=== PATIENT | female | born 1995 | race Caucasian/White ===

== ENCOUNTER 2017-04-05 06:30 | Emergency (ER) | payer OTHER ==
[2017-04-05 06:58] VITALS: TEMP 98.5; BMI 21.9
[2017-04-05] MEDS ORDERED: SODIUM CHLORIDE 1,000 ML IV STA (07:18)
[2017-04-05] MEDS ORDERED: ACETAMINOPHEN 1000 MG/100 ML VIAL (NON FORMULARY) IVPB ONE (07:18)
[2017-04-05] MEDS ORDERED: ACETAMINOPHEN INJECTION 100 ML IVPB ONE (07:22)
--- NOTE | 2017-04-05 07:37 | PDOC ---
History of Present Illness - General History Source: Patient Exam Limitations: No Limitations - History of Present Illness Initial Comments: 04/05/17 07:42 The patient is a 21 year old female, with a significant past medical history of , who presents to the emergency department with abdominal pain, nausea, and vomiting since yesterday. The patient reports during her period, on Monday, having heavy dark bleeding with various visible clots. She reports since then having sharp and constant abdominal pain. She also notes having one episode of vomiting this morning. She reports taking control, but reports taking them regularly. She denies any recent travel or sick contacts. She denies recent fevers, chills, headache or dizziness. She denies recent diarrhea or constipation. She denies recent dysuria, frequency, urgency or hematuria. She denies recent chest pain or shortness of breath. Allergies: NKA Past surgical history: None reported. Social history: Nonsmoker. Denies EtOH use and recreational drug use. <Maximino Lindsay - Last Filed: 04/05/17 07:52> - General History Source: Patient Exam Limitations: No Limitations <Kofi Fernández - Last Filed: 04/06/17 08:09> - General Chief Complaint: Nausea/Vomiting Stated Complaint: ABD PAIN, VOMITING Time Seen by Provider: 04/05/17 07:06 Past History <Maximino Lindsay - Last Filed: 04/05/17 07:52> - Past Medical History Asthma: Yes - Immunization History Immunization Up to Date: Yes - Psycho/Social/Smoking Cessation Hx Anxiety: No Suicidal Ideation: No Smoking Status: No Smoking History: Current every day smoker Number of Cigarettes Smoked Daily: 7 Information on smoking cessation initiated: No Hx Alcohol Use: No Drug/Substance Use Hx: No Substance Use Type: None <Kofi Fernández - Last Filed: 04/06/17 08:09> - Past Medical History Allergies/Adverse Reactions: Allergies Allergy/AdvReac Type Severity Reaction Status Date / Time No Known Allergies Allergy Verified 01/04/16 12:29 Home Medications: Ambulatory Orders Cephalexin [Keflex] 500 mg PO BID #14 capsule 04/05/17 Levonorgestrel-Ethin Estradiol [Altavera-28 Tablet] 1 tab PO DAILY 04/05/17 Review of Systems - Review of Systems Able to Perform ROS?: Yes Comments:: 04/05/17 07:42 GENERAL/CONSTITUTIONAL: No fever or chills. No weakness. HEAD, EYES, EARS, NOSE AND THROAT: No change in vision. No ear pain or discharge. No sore throat. CARDIOVASCULAR: No chest pain or shortness of breath. RESPIRATORY: No cough, wheezing, or hemoptysis. GASTROINTESTINAL: +Abdominal pain, nausea, vomiting. No diarrhea or constipation. GENITOURINARY: +dysfunctional vaginal bleeding. No dysuria, frequency, or change in urination. MUSCULOSKELETAL: No joint or muscle swelling or pain. No neck or back pain. SKIN: No rash NEUROLOGIC: No headache, vertigo, loss of consciousness, or change in strength/ sensation. ENDOCRINE: No increased thirst. No abnormal weight change. HEMATOLOGIC/LYMPHATIC: No anemia, easy bleeding, or history of blood clots. ALLERGIC/IMMUNOLOGIC: No hives or skin allergy. <Maximino Lindsay - Last Filed: 04/05/17 07:52> *Physical Exam - Vital Signs Last Vital Signs Temp Pulse Resp BP Pulse Ox 98.5 F 82 19 136/71 100 04/05/17 06:45 04/05/17 06:45 04/05/17 06:45 04/05/17 06:45 04/05/17 06:45 - Physical Exam Comments: 04/05/17 07:53 GENERAL: Awake, alert, and fully oriented, in no acute distress HEAD: No signs of trauma EYES: PERRLA, EOMI, sclera anicteric, conjunctiva clear ENT: Auricles normal inspection, hearing grossly normal, nares patent, oropharynx clear without exudates. Moist mucosa NECK: Normal ROM, supple, no lymphadenopathy, JVD, or masses LUNGS: Breath sounds equal, clear to auscultation bilaterally. No wheezes, and no crackles HEART: Regular rate and rhythm, normal S1 and S2, no murmurs, rubs or gallops ABDOMEN: Mild suprabic tenderness. Negative mcburney's point. No RLQ tenderness. Soft, normoactive bowel sounds. No guarding, no rebound. No masses PELVIC: No blood or discharge. Closed cervical os. Mild discomfort on palpation of the uterus. No adnexal tenderness. EXTREMITIES: Normal range of motion, no edema. No clubbing or cyanosis. No cords, erythema, or tenderness NEUROLOGICAL: Cranial nerves II through XII grossly intact. Normal speech, normal gait SKIN: Warm, Dry, normal turgor, no rashes or lesions noted. <Maximino Lindsay - Last Filed: 04/05/17 07:52> - Vital Signs Last Vital Signs Temp Pulse Resp BP Pulse Ox 98.5 F 82 19 136/71 100 04/05/17 06:45 04/05/17 06:45 04/05/17 06:45 04/05/17 06:45 04/05/17 06:45 <Kofi Fernández - Last Filed: 04/06/17 08:09> ED Treatment Course - LABORATORY CBC & Chemistry Diagram: 04/05/17 07:40 04/05/17 07:40 <Maximino Lindsay - Last Filed: 04/05/17 07:52> - LABORATORY CBC & Chemistry Diagram: 04/05/17 07:40 04/05/17 07:40 <Kofi Fernández - Last Filed: 04/06/17 08:09> Medical Decision Making - Medical Decision Making 04/05/17 07:26 A portion of this note was documented by scribe services under my direction. I have reviewed the details of the note, within reason, and agree with the documentation with the following case summary and management plan written by me. Patient treated in the ED. Nursing notes are reviewed and incorporated into the medical decision-making. Vital signs reviewed. Peripheral IV access obtained by the nurse, laboratory studies are drawn and sent, reviewed and interpreted by myself. Vital Signs Temp Pulse Resp BP Pulse Ox 98.5 F 82 19 136/71 100 04/05/17 06:45 04/05/17 06:45 04/05/17 06:45 04/05/17 06:45 04/05/17 06:45 21-year-old female with past medical history of asthma, history of irregular periods and on OCPs presents with lower abdominal pain. Patient reports that she typically has irregular periods she had her period 1 week ago that resolved. Did not have much abdominal pain at that time. However, last 2 days, patient's been having intermittent sharp lower abdominal pain but no vaginal bleeding or discharge. She is currently sexually active with her significant other. Does not use condoms and she is on control pills. She does report that she occasionally misses her oral contraceptives. Reported one episode of nausea and vomiting. Denies diarrhea. Her last period was several months ago. Patient has lower abdominal pain but no right lower quadrant left for quadrant tenderness. Differential includes, if , ectopic versus threatened miscarriage, uterine fibroids, cystitis, other acute abdominal pathology. We'll obtain a urine test. Labs. We'll likely need further imaging. 04/05/17 14:57 CBC, BMP 04/05/17 07:40 04/05/17 07:40 CMP Sodium 143 mmol/L (136-145) 04/05/17 07:40 Potassium 3.9 mmol/L (3.5-5.1) 04/05/17 07:40 Chloride 110 mmol/L (98-107) H 04/05/17 07:40 Carbon Dioxide 24 mmol/L (21-32) 04/05/17 07:40 Anion Gap 9 (8-16) 04/05/17 07:40 BUN 12 mg/dL (7-18) 04/05/17 07:40 Creatinine 0.8 mg/dL (0.55-1.02) 04/05/17 07:40 Creat Clearance w eGFR > 60 (>60) 04/05/17 07:40 Random Glucose 95 mg/dL (74-106) 04/05/17 07:40 Calcium 9.0 mg/dL (8.5-10.1) 04/05/17 07:40 Total Bilirubin 0.3 mg/dL (0.2-1.0) 04/05/17 07:40 AST 12 U/L (15-37) L 04/05/17 07:40 ALT 19 U/L (12-78) 04/05/17 07:40 Alkaline Phosphatase 78 U/L (45-117) 04/05/17 07:40 Total Protein 7.0 g/dl (6.4-8.2) 04/05/17 07:40 Albumin 3.8 g/dl (3.4-5.0) 04/05/17 07:40 Beta HCG, Quant < 1.0 mIU/ml 04/05/17 07:40 Urine Test Results Urine Color Yellow 04/05/17 07:40 Urine Appearance Slcloudy 04/05/17 07:40 Urine pH 7.0 (5.0-8.0) 04/05/17 07:40 Ur Specific Ford 1.020 (1.005-1.025) 04/05/17 07:40 Urine Protein 1+ (NEGATIVE) H 04/05/17 07:40 Urine Glucose (UA) Negative (NEGATIVE) 04/05/17 07:40 Urine Ketones Negative (NEGATIVE) 04/05/17 07:40 Urine Blood Negative (NEGATIVE) 04/05/17 07:40 Urine Nitrite Negative (NEGATIVE) 04/05/17 07:40 Urine Bilirubin Negative (NEGATIVE) 04/05/17 07:40 Ur Leukocyte Esterase 3+ (NEGATIVE) H 04/05/17 07:40 Urine RBC 5 /hpf (0-3) 04/05/17 07:40 Urine WBC 29 /hpf (3-5) 04/05/17 07:40 Ur Epithelial Cells Few /hpf (FEW) 04/05/17 07:40 Urine Mucus Rare 04/05/17 07:40 Pt with diffuse lower abdominal pain. Transvaginal ultrasound and CT scan of abdomen and pelvis demonstrated no acute findings. Pt reports feeling better. Given ceftriaxone. Will d/c with keflex. I instructed the patient to call back in the next several days for the cultures. Return precautions given. I discussed the physical exam findings, ancillary test results and final diagnoses with the patient. I answered all of the patient's questions. The patient was satisfied with the care received and felt comfortable with the discharge plan and treatment plan. The patient will call their primary care physician within 24 hours to arrange follow-up and will return to the Emergency Department with any new, persistant or worsening symptoms. <Kofi Fernández - Last Filed: 04/06/17 08:09> *DC/Admit/Observation/Transfer - Attestations Scribe Attestion: 04/05/17 07:53 Documentation prepared by Maximino Lindsay, acting as medical equipment repairer for Kofi Fernández MD. <Maximino Lindsay - Last Filed: 04/05/17 07:52> - Discharge Dispostion Admit: No <Kofi Fernández - Last Filed: 04/06/17 08:09> Diagnosis at time of Disposition: UTI (urinary tract infection) Qualifiers: Urinary tract infection type: acute cystitis Hematuria presence: without hematuria Qualified Code(s): N30.00 - Acute cystitis without hematuria - Discharge Dispostion Disposition: HOME Condition at time of disposition: Improved - Prescriptions Prescriptions: Cephalexin [Keflex] 500 mg PO BID #14 capsule - Patient Instructions Printed Discharge Instructions: DI for Urinary Tract Infection (UTI) Additional Instructions: Please call back in the next 48 to 72 hours for the urine culture results. Take 500 mg keflex (antibiotic) every 12 hours for the next 7 days. Please take the medications as prescribed. Drink plenty of fluids and rest. Follow up with your primary care physician.
[2017-04-05 07:53] LABS: BASOPHIL 0.3 % (0-2.0); EOSINOPHIL 1.1 % (0-4.5); MCH 31.7 pg (25.7-33.7); MEAN CELL VOLUME 93.3 fl (80-96); MEAN PLT VOLUME 7.8 fl (7.5-11.1); NEUTROPHILS 79.6 % (42.8-82.8); PLATELET COUNT 273 K/MM3 (134-434); RDW 14.1 % (11.6-15.6); WHITE BLOOD COUNT 17.3 K/mm3 (4.0-10.0)
[2017-04-05 07:54] LABS: URINE APPEARANCE SLCLOUDY; URINE BILIRUBIN NEGATIVE (NEGATIVE); URINE BLOOD NEGATIVE (NEGATIVE); URINE COLOR YELLOW; URINE GLUCOSE (UA) NEGATIVE (NEGATIVE); URINE KETONE NEGATIVE (NEGATIVE); URINE NITRITE NEGATIVE (NEGATIVE); URINE UROBILINOGEN NEGATIVE E.U./dl (0.2-1.0)
[2017-04-05 07:57] LABS: URINE LEUK ESTERASE 3+ (NEGATIVE); URINE PROTEIN 1+ (NEGATIVE)
[2017-04-05 07:59] LABS: URINE MUCUS RARE; URINE RBC 5 /hpf (0-3); URINE WBC 29 /hpf (3-5)
[2017-04-05 08:18] LABS: ALBUMIN 3.8 g/dl (3.4-5.0); ANION GAP 9 (8-16); CO2 24 mmol/L (21-32); COCKROFT - GAULT 96.3815; CREATININE 0.8 mg/dL (0.55-1.02); GLUCOSE,RANDOM 95 mg/dL (74-106); SGOT/AST 12 U/L (15-37); SGPT/ALT 19 U/L (12-78)
[2017-04-05 08:21] LABS: ALK PHOS 78 U/L (45-117); BILIRUBIN,TOTAL 0.3 mg/dL (0.2-1.0)
[2017-04-05] MEDS ORDERED: CEFTRIAXONE 1 GM in DEXTROSE 5%-WATER - 50 ML IVPB ONE (08:40)
[2017-04-05] MEDS ORDERED: CEFTRIAXONE 50 ML ONE (08:46)
[2017-04-05] MEDS ORDERED: ONDANSETRON 4 MG/2 ML VIAL IVPB ONE (11:25)
[2017-04-05] MEDS ORDERED: ONDANSETRON 4 MG/2 ML VIAL ONE (11:35)
[2017-04-05 15:32] VITALS: BP 96/61; PULSE 58
== END 2017-04-05 15:32 | disposition home or self-care (01) ==
LOC: JER 06:30
PROC: 3E03329 Introduction of Other Anti-infective into Peripheral Vein, Percutaneous Approach (ICD-10-PCS; principal; 2017-04-05)
PROC: 3E033GC Introduction of Other Therapeutic Substance into Peripheral Vein, Percutaneous Approach (ICD-10-PCS; 2017-04-05)
PROC: 3E0337Z Introduction of Electrolytic and Water Balance Substance into Peripheral Vein, Percutaneous Approach (ICD-10-PCS; 2017-04-05)
DX: N30.00 Acute cystitis without hematuria (principal); F17.210 Nicotine dependence, cigarettes, uncomplicated
CPT/HCPCS: 36415; 74177-TC; 76830-TC; 76856-TC; 80053; 81003; 81015; 84702; 84703; 85025; 86850; 86900; 86901; 87077; 87086; 99283-25

== ENCOUNTER 2017-10-04 21:05 | Emergency (ER) | payer OTHER ==
--- NOTE | 2017-10-04 21:10 | PDOC ---
Rapid Medical Evaluation Time Seen by Provider: 10/04/17 21:07 Medical Evaluation: Allergies Allergy/AdvReac Type Severity Reaction Status Date / Time No Known Allergies Allergy Verified 01/04/16 12:29 10/04/17 21:07 The patient presents with a chief complaint of: lower abd pain x 4-5 days, vomiting x 1, denies preg, no irreg menses, no dysuria, no diarrhea, no travel I have performed a brief in-person evaluation of this patient. Pertinent physical exam findings: vss I have ordered the following: ua , ucx, upreg The patient will proceed to the ED for further evaluation. Discharge Disposition - Diagnosis Lower abdominal pain - Referrals - Patient Instructions - Post Discharge Activity
[2017-10-04 21:16] VITALS: BP 112/69; PULSE 90; TEMP 98; BMI 19.0
[2017-10-04 21:27] LABS: URINE APPEARANCE CLOUDY; URINE BILIRUBIN NEGATIVE (NEGATIVE); URINE BLOOD NEGATIVE (NEGATIVE); URINE COLOR YELLOW; URINE GLUCOSE (UA) NEGATIVE (NEGATIVE); URINE KETONE TRACE (NEGATIVE); URINE NITRITE NEGATIVE (NEGATIVE); URINE PROTEIN NEGATIVE (NEGATIVE); URINE UROBILINOGEN 4.0 E.U/dl mg/dL (0.2-1.0)
[2017-10-04 21:28] LABS: URINE LEUK ESTERASE 2+ (NEGATIVE)
[2017-10-04 21:29] LABS: URINE BACTERIA RARE /hpf (NONE SEEN); URINE MUCUS RARE; URINE RBC 10 /hpf (0-3); URINE WBC 89 /hpf (3-5)
[2017-10-04] MEDS ORDERED: ONDANSETRON *ODT* 4 MG TABLET SL ONE (21:35)
[2017-10-04] MEDS ORDERED: ACETAMINOPHEN 325 MG TABLET (FP) PO ONE (21:35)
--- NOTE | 2017-10-04 21:44 | PDOC ---
History of Present Illness - General History Source: Patient Exam Limitations: No Limitations - History of Present Illness Initial Comments: 10/04/17 21:45 22 year old female with no PMH, who presents to the emergency room complaining of 3-5 days of constant lower abdominal pain, nausea, and 1 episode of nonbilious nonbloody vomiting today. The patient notes that her LMP was on . She reports that her last bowel movement was today and normal. Denies dark tarry stools. Denies diarrhea, constipation. Denies fever, chills. Denies night sweats. Denies sick contacts. Allergies: NKA <Estefani Mccloud - Last Filed: 10/04/17 21:45> <Diana Fung - Last Filed: 10/05/17 00:00> - General Chief Complaint: Pain Stated Complaint: STOMACH PAIN Time Seen by Provider: 10/04/17 21:07 Past History <Estefani Mccloud - Last Filed: 10/04/17 21:45> - Past Medical History Asthma: Yes COPD: No - Immunization History Immunization Up to Date: Yes - Suicide/Smoking/Psychosocial Hx Smoking Status: No Smoking History: Never smoked Have you smoked in the past 12 months: No Number of Cigarettes Smoked Daily: 5 Information on smoking cessation initiated: No Hx Alcohol Use: No Drug/Substance Use Hx: No Substance Use Type: None <Diana Fung - Last Filed: 10/05/17 00:00> - Past Medical History Allergies/Adverse Reactions: Allergies Allergy/AdvReac Type Severity Reaction Status Date / Time No Known Allergies Allergy Verified 10/04/17 21:09 Home Medications: Ambulatory Orders Cephalexin [Keflex] 500 mg PO BID #14 capsule 04/05/17 Levonorgestrel-Ethin Estradiol [Altavera-28 Tablet] 1 tab PO DAILY 04/05/17 Ciprofloxacin [Cipro (Restricted To Id)] 500 mg PO BID #14 tablet 04/07/17 Nitrofurantoin Monohyd/M-Cryst [Macrobid -] 100 mg PO BID #10 capsule 10/04/17 Review of Systems - Review of Systems Able to Perform ROS?: Yes Comments:: 10/04/17 21:45 GENERAL/CONSTITUTIONAL: No fever or chills. No weakness. HEAD, EYES, EARS, NOSE AND THROAT: No change in vision. No ear pain or discharge. No sore throat. GASTROINTESTINAL: +lower abdominal pain, nausea, one episode of vomiting, No diarrhea or constipation. GENITOURINARY: No dysuria, frequency, or change in urination. CARDIOVASCULAR: No chest pain or shortness of breath. RESPIRATORY: No cough, wheezing, or hemoptysis. MUSCULOSKELETAL: No joint or muscle swelling or pain. No neck or back pain. SKIN: No rash NEUROLOGIC: No headache, vertigo, loss of consciousness, or change in strength/ sensation. ENDOCRINE: No increased thirst. No abnormal weight change. HEMATOLOGIC/LYMPHATIC: No anemia, easy bleeding, or history of blood clots. ALLERGIC/IMMUNOLOGIC: No hives or skin allergy. <Estefani Mccloud - Last Filed: 10/04/17 21:45> *Physical Exam - Vital Signs Last Vital Signs Temp Pulse Resp BP Pulse Ox 98.0 F 90 18 112/69 99 10/04/17 21:09 10/04/17 21:09 10/04/17 21:09 10/04/17 21:09 10/04/17 21:09 - Physical Exam Comments: 10/04/17 21:45 Constitutional: Awake, alert, oriented. No acute distress. Head: Normocephalic. Atraumatic Eyes: PERRL. EOMI. Conjunctivae are not pale. ENT: Mucous membranes are moist and intact. Posterior pharynx without exudates or erythema. Uvula midline. Neck: Supple. Full ROM. No lymphadenopathy. Cardiovascular: Regular rate. Regular rhythm. S1, S2 regular. Distal pulses are 2+ and symmetric. Pulmonary/Chest: No evidence of respiratory distress. Clear to auscultation bilaterally No wheezing, rales or rhonchi. Abdominal: +bilateral lower pelvic tenderness Soft and non-distended. No rebound, guarding or rigidity. No organomegaly. No palpable masses. Good bowel sounds. Back: No CVA tenderness. Musculoskeletal: No edema. No cyanosis. No clubbing. Full range of motion in all extremities. Nocalf tenderness. Radial/pedal pulses are intact and 2+ bilaterally Skin: Skin is warm and dry. No petechiae. No purpura. Neurological: Alert and oriented to person, place, and time. Cranial nerves II -XII are grossly intact. Normal speech. Strength is grossly symmetric. No sensory deficits. Psychiatric: Good eye contact. Normal interaction, affect and behavior. <Estefani Mccloud - Last Filed: 10/04/17 21:45> - Vital Signs Last Vital Signs Temp Pulse Resp BP Pulse Ox 98.0 F 90 18 112/69 99 10/04/17 21:09 10/04/17 21:09 10/04/17 21:09 10/04/17 21:09 10/04/17 21:09 <Diana Fung - Last Filed: 10/05/17 00:00> ED Treatment Course - ADDITIONAL ORDERS Additional order review: Laboratory Results 10/04/17 21:15 Urine Color Yellow Urine Appearance Cloudy Urine pH 6.0 Ur Specific Roland 1.025 Urine Protein Negative Urine Glucose (UA) Negative Urine Ketones Trace H Urine Blood Negative Urine Nitrite Negative Urine Bilirubin Negative Urine Urobilinogen 4.0 e.u/dl H Urine WBC (Auto) 89 Urine RBC (Auto) 10 Ur Epithelial Cells Many Urine Bacteria Rare Urine Mucus Rare Urine HCG, Qual Negative <Estefani Mccloud - Last Filed: 10/04/17 21:45> - LABORATORY CBC & Chemistry Diagram: 10/04/17 22:00 10/04/17 22:00 - ADDITIONAL ORDERS Additional order review: Laboratory Results 10/04/17 21:15 Urine Color Yellow Urine Appearance Cloudy Urine pH 6.0 Ur Specific Roland 1.025 Urine Protein Negative Urine Glucose (UA) Negative Urine Ketones Trace H Urine Blood Negative Urine Nitrite Negative Urine Bilirubin Negative Urine Urobilinogen 4.0 e.u/dl H Urine WBC (Auto) 89 Urine RBC (Auto) 10 Ur Epithelial Cells Many Urine Bacteria Rare Urine Mucus Rare Urine HCG, Qual Negative - RADIOLOGY Radiology Studies Ordered: Category Date Time Status TRANSVAGINAL ULTRASOUND US [US] Stat Ultrasound 10/04/17 21:34 Ordered <Diana Fung - Last Filed: 10/05/17 00:00> Medical Decision Making - Medical Decision Making 10/04/17 21:43 a/p: 22yo female with lower abd pain x5 days -will check labs -pelvic u/s -ua -reassess -zofran for nausea -tylenol for pain 10/04/17 23:21 re-eval: pt feeling better. nausea controlled. will start abx for UTI. discussed ultrasound results. 10/04/17 23:58 pt ambulatory in the ED stable for d/c to home discussed all reasons to return to the ED and need for follow up <Diana Fung - Last Filed: 10/05/17 00:00> *DC/Admit/Observation/Transfer - Attestations Scribe Attestion: 10/04/17 21:46 Documentation prepared by KAELA Wells, acting as certified ophthalmic medical technician for Diana Fung DO. <Estefani Mccloud - Last Filed: 10/04/17 21:45> - Discharge Dispostion Admit: No - Attestations Physician Attestion: 10/05/17 00:00 I, Dr. Diana Fung DO, attest that this document has been prepared under my direction and personally reviewed by me in its entirety. I further attest, that it accurately reflects all work, treatment, procedures and medical decision -making performed by me. <Diana Fung - Last Filed: 10/05/17 00:00> Diagnosis at time of Disposition: Lower abdominal pain, UTI (urinary tract infection), Pelvic pain - Discharge Dispostion Disposition: HOME Condition at time of disposition: Stable - Prescriptions Prescriptions: Nitrofurantoin Monohyd/M-Cryst [Macrobid -] 100 mg PO BID #10 capsule - Referrals Referrals: Jack Liang MD [Staff Physician] - Ever Jaeger MD [Staff Physician] - - Patient Instructions Printed Discharge Instructions: DI for Urinary Tract Infection (UTI) Additional Instructions: Please take all antibiotics as prescribed. Please return to the ED with any further complaints. Please follow up with your PMD.
[2017-10-04] MEDS ORDERED: ONDANSETRON *ODT* 4 MG TABLET ONE (21:46)
[2017-10-04] MEDS ORDERED: ACETAMINOPHEN 325 MG TABLET (FP) ONE (21:46)
[2017-10-04 22:03] LABS: BASOPHIL 0.4 % (0-2.0); EOSINOPHIL 1.8 % (0-4.5); MCH 31.9 pg (25.7-33.7); MCHC 33.4 g/dl (32.0-36.0); MEAN CELL VOLUME 95.4 fl (80-96); MEAN PLT VOLUME 7.5 fl (7.5-11.1); NEUTROPHILS 65.7 % (42.8-82.8); PLATELET COUNT 308 K/MM3 (134-434); RDW 13.5 % (11.6-15.6); WHITE BLOOD COUNT 11.8 K/mm3 (4.0-10.0)
[2017-10-04 23:29] LABS: ALBUMIN 3.5 g/dl (3.4-5.0); ANION GAP 10 (8-16); BILIRUBIN,TOTAL 0.4 mg/dL (0.2-1.0); CALCIUM 8.6 mg/dL (8.5-10.1); CO2 25 mmol/L (21-32); CREATININE 0.7 mg/dL (0.55-1.02); GLUCOSE,RANDOM 123 mg/dL (74-106); SGOT/AST 7 U/L (15-37); SGPT/ALT 15 U/L (12-78)
[2017-10-04 23:30] LABS: ALK PHOS 75 U/L (45-117); TOT PROT 6.4 g/dl (6.4-8.2)
[2017-10-04] MEDS ORDERED: NITROFURANTOIN MACROCRYSTAL 50 MG CAPSULE (FP) PO SCH (23:30)
[2017-10-05] MEDS ORDERED: NITROFURANTOIN MACROCRYSTAL 50 MG CAPSULE (FP) ONE (00:24)
[2017-10-05 12:05] LABS: URINE LEUK ESTERASE TRACE (NEGATIVE)
--- NOTE | 2017-10-07 10:05 | PDOC ---
Patient Follow-up (Call Back) - Post ED Follow - Up Chief Complaint: UTI Condition at time of discharge: Stable Disposition at time of original discharge: HOME Reason for Call Back: Abnwl. Microbiology (ON MACROBID, SENSITIVE, NO ACTION NEEDED)
== END 2017-10-05 00:21 | disposition home or self-care (01) ==
LOC: JER 21:05
DX: N39.0 Urinary tract infection, site not specified (principal); B96.89 Other specified bacterial agents as the cause of diseases classified elsewhere
CPT/HCPCS: 36415; 76830-TC; 80053; 81003; 81015; 84703; 85025; 87086; 87186; 99281-25

== ENCOUNTER 2017-10-24 06:33 | Emergency (ER) | payer OTHER ==
[2017-10-24 07:22] VITALS: BP 104/62; PULSE 89; TEMP 98; BMI 19.0
--- NOTE | 2017-10-24 07:31 | PDOC ---
History of Present Illness <Nick Cleaning - Last Filed: 10/24/17 10:18> - General History Source: Patient Exam Limitations: No Limitations - History of Present Illness Initial Comments: 10/24/17 07:58 The patient is a 22 year old female with a significant PMH of asthma on albuterol who presents to the emergency department with runny nose, non- productive cough, chills with associated substernal chest discomfort and throat pain for the past two days. The patient describes the substernal chest discomfort as a 10/10 worsened with coughing but not positional changes. The patient reports she has not taken any medications for her symptoms. She reports using her asthma pump yesterday with mild alleviation of her symptoms. The patient states she can tolerate PO intake. The patient endorses her boyfriend is on antibiotics for pharyngitis. The patient denies having the flu vaccine or any recent travel. The patient notes she still has some urinary symptoms due to a recent UTI and has three days of antibiotics left. Patient states she is not currently on control. The patient denies headache and dizziness. Denies fever, chills, nausea, vomit, diarrhea and constipation. Denies hematuria. Allergies: NKA Past surgical history: None reported. Social history: Current smoker (4 cigarettes/ day). No reported alcohol or drug use. <Heidi Almodovar - Last Filed: 10/24/17 10:22> - General Chief Complaint: Cold Symptoms Stated Complaint: COUGHING/UNABLE TO SWALLOW Time Seen by Provider: 10/24/17 07:24 Past History - Past Medical History Asthma: Yes COPD: No - Immunization History Immunization Up to Date: Yes - Suicide/Smoking/Psychosocial Hx Smoking Status: No Smoking History: Current every day smoker Have you smoked in the past 12 months: Yes Number of Cigarettes Smoked Daily: 4 Information on smoking cessation initiated: No Hx Alcohol Use: No Drug/Substance Use Hx: No Substance Use Type: None <Nick Cleaning - Last Filed: 10/24/17 10:18> <Heidi Almodovar - Last Filed: 10/24/17 10:22> - Past Medical History Allergies/Adverse Reactions: Allergies Allergy/AdvReac Type Severity Reaction Status Date / Time No Known Allergies Allergy Verified 10/24/17 07:22 Home Medications: Ambulatory Orders Albuterol Sulfate Inhaler - [Ventolin HFA Inhaler -] 1 - 2 inh PO Q4H PRN #1 inhaler 10/24/17 Review of Systems - Review of Systems Constitutional: Yes: Chills. No: Fever HEENTM: Yes: Nose Congestion Respiratory: Yes: Cough. No: Shortness of Breath Cardiac (ROS): Yes: Chest Pain ABD/GI: No: Diarrhea, Nausea, Vomiting : No: Dysuria Neurological: No: Headache All Other Systems: Reviewed and Negative <Nick Cleaning - Last Filed: 10/24/17 10:18> - Review of Systems Able to Perform ROS?: Yes <Heidi Almodovar - Last Filed: 10/24/17 10:22> *Physical Exam - Vital Signs Last Vital Signs Temp Pulse Resp BP Pulse Ox 98 F 89 20 104/62 99 10/24/17 07:20 10/24/17 07:20 10/24/17 07:20 10/24/17 07:20 10/24/17 07:20 <Nick Cleaning - Last Filed: 10/24/17 10:18> - Vital Signs Last Vital Signs Temp Pulse Resp BP Pulse Ox 98 F 89 20 104/62 99 10/24/17 07:20 10/24/17 07:20 10/24/17 07:20 10/24/17 07:20 10/24/17 07:20 - Physical Exam Comments: 10/24/17 08:01 GENERAL: The patient is awake, alert, and fully oriented, in no acute distress. HEAD: Normal with no signs of trauma. EYES: Pupils equal, round and reactive to light, extraocular movements intact, sclera anicteric, conjunctiva clear with no pallor. ENT: (+) Tonsilar erythema. Ears normal, nares patent, oropharynx clear without exudates. Moist mucous membranes. NECK: (+) Lymphadenopathy. Normal range of motion, supple, JVD, or masses. LUNGS: Breath sounds equal, clear to auscultation bilaterally. No wheeze/ crackles. HEART: Regular rate and rhythm, normal S1 and S2 without murmur or rub. ABDOMEN: Soft/nontender/nondistended. BS wnl. No guarding or rebound. No palpable masses. No hepatosplenomegaly. EXTREMITIES: Normal range of motion, no edema. No clubbing or cyanosis. No cords, erythema, or tenderness. NEUROLOGICAL: Cranial nerves II through XII grossly intact. Normal speech, normal gait. PSYCH: Normal mood, normal affect. SKIN: Warm, Dry, normal turgor, no rashes or lesions noted. <Heidi Almodovar - Last Filed: 10/24/17 10:22> Heart Score/ECG Review #1 ECG reviewed & interpreted by me at: 07:44 General ECG Interpretation: Sinus Rhythm, Normal Rate (80), Normal Intervals ( IRBBB), No acute ischemic changes <Nick Cleaning - Last Filed: 10/24/17 10:18> Medical Decision Making - Medical Decision Making 10/24/17 08:28 A portion of this note was documented by scribe services under my direction. I have reviewed the details of the note, within reason, and agree with the documentation with the following case summary and management plan written by me. 22-year-old female with history of mild intermittent asthma, 4 cigarette per day smoking presents with URI symptoms of nasal congestion, cough for 2 days. No recent travel, positive sick contacts. Nonproductive cough with substernal chest discomfort when she coughs, otherwise no persistent chest pain or dyspnea. Vital signs stable, afebrile with normal O2 sat Alert, speaking clearly and comfortably Oropharynx clear, slight submandibular lymphadenopathy Coarse bronchial cough, lungs are otherwise clear without wheezing or focally decreased breath sounds, no accessory muscle use or prolonged expiration Abdomen benign No edema 22-year-old female with likely viral upper respiratory infection/bronchitis, rule out influenza. Complaining of some chest discomfort but this is more likely musculoskeletal, EKG is nonischemic. Influenza swab Chest x-ray Ibuprofen for discomfort, nebulizer for cough Reassess and likely discharge with reassurance 10/24/17 10:18 Feels better after ibuprofen and nebulizer. Strep, influenza, ekg, cxr wnl. Agrees with d/c plan, will refill her albuterol pump, understands return criteria. <Nick Cleaning - Last Filed: 10/24/17 10:18> *DC/Admit/Observation/Transfer <Nick Cleaning - Last Filed: 10/24/17 10:18> - Attestations Scribe Attestion: 10/24/17 08:03 Documentation prepared by Heidi Almodovar, acting as medical office technology instructor for Nick Cleaning MD. <Heidi Almodovar - Last Filed: 10/24/17 10:22> Diagnosis at time of Disposition: Acute bronchitis Qualifiers: Bronchitis organism: unspecified organism Qualified Code(s): J20.9 - Acute bronchitis, unspecified - Discharge Dispostion Disposition: HOME Condition at time of disposition: Stable - Prescriptions Prescriptions: Albuterol Sulfate Inhaler - [Ventolin HFA Inhaler -] 1 - 2 inh PO Q4H PRN #1 inhaler PRN Reason: Wheezing - Referrals Referrals: Jack Liang MD [Staff Physician] - - Patient Instructions Printed Discharge Instructions: DI for Acute Bronchitis, DI for Viral Upper Respiratory Infection -- Adult Additional Instructions: Activity as tolerated. Stay hydrated. A strep test, and influenza test, and a chest x-ray performed today showed no abnormalities. Tylenol 1000 mg every 8 hours and/or ibuprofen 600 mg every 8 hours as needed for pain. Albuterol pump as prescribed as needed for cough or wheezing. You should follow up with your primary doctor as soon as possible regarding today's emergency department visit. If you don't have a primary doctor, consider calling Dr. Liang in the [facility] for an appointment. Return to the emergency department for any new or concerning symptoms, particularly persistent high fevers, wheezing or difficulty breathing, persistent or worsening chest pain.
[2017-10-24] MEDS ORDERED: IBUPROFEN 600 MG TABLET (FP) PO ONE ×2 (07:32→08:06)
[2017-10-24] MEDS ORDERED: ALBUTEROL SO4 0.083% IH SOL 2.5 MG/3 ML VIAL.NEB. NEB ONE ×2 (07:42→08:06)
--- NOTE | 2017-10-25 09:38 | EKG ---
Test Reason : Blood Pressure : / mmHG Vent. Rate : 080 BPM Atrial Rate : 080 BPM P-R Int : 126 ms QRS Dur : 086 ms QT Int : 376 ms P-R-T Axes : 083 076 066 degrees QTc Int : 433 ms NORMAL SINUS RHYTHM WITH SINUS ARRHYTHMIA BIATRIAL ENLARGEMENT ABNORMAL ECG NO PREVIOUS ECGS AVAILABLE Confirmed by MD Kay, Azael ([id number]) on 10/25/2017 9:38:03 AM Referred By: Confirmed By:Azael Villanueva MD
== END 2017-10-24 10:47 | disposition home or self-care (01) ==
LOC: JER 06:33
PROC: 3E0F7GC Introduction of Other Therapeutic Substance into Respiratory Tract, Via Natural or Artificial Opening (ICD-10-PCS; principal; 2017-10-24)
DX: J20.9 Acute bronchitis, unspecified (principal)
CPT/HCPCS: 71046-TC; 84703; 87070; 87430; 87804; 93005; 93010; 94640; 99283-25

== ENCOUNTER 2018-02-17 22:31 | Emergency (ER) | payer SELFPAY | END 2018-02-18 02:21 | disposition home or self-care (01) | LOC: JER 22:31 | CPT/HCPCS: 36415; 71046-TC-FY; 81003; 84703; 87491; 87591; 99282-25 ==

== ENCOUNTER 2018-02-26 21:52 | Observation (INO) | payer OTHER ==
[2018-02-26] MEDS ORDERED: ALBUTEROL SO4 2.5/IPRATROPIUM 0.5 INH SOL 3 ML VIAL.NEB. NEB ONE ×4 (22:04→23:51)
--- NOTE | 2018-02-26 22:12 | PDOC ---
History of Present Illness - General Chief Complaint: Asthma Stated Complaint: PAIN/S.O.B Time Seen by Provider: 02/26/18 22:10 History Source: Patient Exam Limitations: No Limitations - History of Present Illness Initial Comments: This is a 22 YOF with h/o asthma (last prednisone course one year ago, never admitted or intubated for her asthma, uses Albuterol MDI and neb treatments at home 2x/day at baseline), bronchitis (tx in October 2017 with abx), and smoking cigarettes who p/w SOB, wheezing, cough, chest tightness with coughing only, and upper abdominal tightness with cough worsening for the past three days. She has been getting SOB enough during exertion that she needs to stop walking after less than a block. She had to skip school today because she was too SOB to make it to the bus stop. She has used her albuterol nebulizer and MDI at home with short-lived relief. She notes nausea yesterday, but denies any fever, chills, vomiting, diarrhea, constipation, LOC, headache, lightheadedness, or other symptoms. She has plenty of her home asthma medications left at home. Past History - Past Medical History Allergies/Adverse Reactions: Allergies Allergy/AdvReac Type Severity Reaction Status Date / Time No Known Allergies Allergy Verified 02/26/18 21:59 Home Medications: Ambulatory Orders Albuterol Sulfate Inhaler - [Ventolin HFA Inhaler -] 1 - 2 inh PO Q4H PRN #1 inhaler 10/24/17 Methocarbamol [Robaxin -] 500 mg PO TID #21 tablet 02/18/18 Asthma: Yes COPD: No - Immunization History Immunization Up to Date: Yes - Suicide/Smoking/Psychosocial Hx Smoking Status: No Smoking History: Current every day smoker Have you smoked in the past 12 months: Yes Number of Cigarettes Smoked Daily: 4 Information on smoking cessation initiated: No Hx Alcohol Use: No Drug/Substance Use Hx: No Substance Use Type: None Review of Systems - Review of Systems Able to Perform ROS?: Yes Constitutional: No: Chills, Fever, Unexplained wgt Loss HEENTM: No: Nose Congestion, Throat Pain Respiratory: Yes: Cough, Shortness of Breath, SOB with Exertion, Wheezing Cardiac (ROS): No: Chest Pain, Palpitations ABD/GI: Yes: Nausea (resolved). No: Constipated, Diarrhea, Vomiting : No: Burning, Dysuria Musculoskeletal: No: Back Pain, Neck Pain Integumentary: No: Bruising, Rash Neurological: No: Headache, Numbness, Tingling, Weakness, Dizziness Endocrine: No: Unexplained Weight Gain, Unexplained Weight Loss *Physical Exam - Vital Signs Last Vital Signs Temp Pulse Resp BP Pulse Ox 98.5 F 122 H 20 107/86 98 02/26/18 21:59 02/26/18 21:59 02/26/18 21:59 02/26/18 21:59 02/26/18 21:59 - Physical Exam General Appearance: Yes: Nourished, Appropriately Dressed, Thin, Other (Well appearing, nontoxic appearing, initially on nebulizer tx, speaking in full sentences, answering questions appropriately, odor of cigarette smoke is present ). No: Apparent Distress HEENT: positive: EOMI, Normal Voice, Hearing Grossly Normal. negative: Scleral Icterus (R), Scleral Icterus (L), Nasal Congestion Neck: positive: Trachea midline, Supple. negative: Tender, Rigid Respiratory/Chest: positive: Wheezing (bilateral expiratory wheezes worse at the bases), Other (occasional cough). negative: Respiratory Distress, Labored Respiration, Rapid RR, Decreased Breath Sounds, Crackles, Rhonchi, Stridor Cardiovascular: positive: Regular Rhythm, Regular Rate, S1, S2. negative: Edema , JVD, Murmur Gastrointestinal/Abdominal: positive: Normal Bowel Sounds, Flat, Soft. negative : Tender, Organomegaly, Pulsatile Mass, Guarding Musculoskeletal: positive: Normal Inspection. negative: Decreased Range of Motion, Vertebral Tenderness Extremity: positive: Normal Capillary Refill, Normal Inspection, Normal Range of Motion. negative: Tender, Cyanosis Integumentary: positive: Normal Color, Dry, Warm. negative: Erythema, Rash, Bruising Neurologic: positive: hoisting engineer II-XII NML intact (grossly), Fully Oriented, Alert, Normal Mood/Affect, Normal Response, Motor Strength 5/5 ED Treatment Course - Medications Given in the ED: ED Medications Discontinued Medications Generic Name Dose Route Start Last Admin Trade Name Freq PRN Reason Stop Dose Admin Albuterol/Ipratropium 1 amp 02/26/18 22:04 02/26/18 22:04 Duoneb - NEB 02/26/18 22:05 1 amp NOW ONE Administration Medical Decision Making - Medical Decision Making Patient with h/o asthma p/w respiratory distress like their prior asthma exacerbation. No reported h/o asthma resulting in intubation, PTX, seizure, LOC, hypercapnia, acidosis, etc. Initial Vital Signs Temp Pulse Resp BP Pulse Ox 98.5 F 122 H 20 107/86 98 02/26/18 21:59 02/26/18 21:59 02/26/18 21:59 02/26/18 21:59 02/26/18 21:59 Exam: Bilateral expiratory wheezes, minimal respiratory distress DDX IBNLT: asthma exacerbation, COPD, bronchitis, PNA, viral URI, unlikely influenza, PTX, CHF, ACS, pericarditis, etc W/U ordered: CXR EKG TX ordered: Iveth Howard CXR: NADP U-preg: negative Reassessment: Patient remains with bilateral expiratory wheezes, reports continued chest tightness. PFT: 240, 200, 210 (likely poor effort noted) Patient's symptoms have been refractory to PO and inhaled medications so far. Will place IV, check CBCD and CMP, Mg, Phos. Will administer 1 mg Mg (patient's blood pressure is soft). Patient's care endorsed to Dr. Lee at the end of my shift. *DC/Admit/Observation/Transfer Diagnosis at time of Disposition: Asthma exacerbation Qualifiers: Asthma severity: unspecified severity Asthma persistence: unspecified Qualified Code(s): J45.901 - Unspecified asthma with (acute) exacerbation - Discharge Dispostion Disposition: HOME Condition at time of disposition: Stable Admit: No - Referrals - Patient Instructions Printed Discharge Instructions: Asthma -- Adult Additional Instructions: You were seen in the ER for asthma exacerbation. We gave you steroids and breathing treatments which resolved your symptoms while you were here in the department. We did blood work and a chest x-ray which did not show any concerning findings. After our assessment, we do not believe you are having a medical emergency at this time, and we believe you are safe to go home. We are sending a prescription for prednisone to your pharmacy. Please take the whole course as prescribed, and follow up with your regular doctor(s) in the next 1-3 days. Call their clinic [facility], tell them you were seen in the ER for asthma, and tell them you need an appointment. Please come back to the ER at any time (24 hours a day) for any new or worsening symptoms, like worsened wheezing/ shortness of breath that is not relieved with your home medications, new severe chest pain, loss of consciousness, or seizure. If you are having severe or life threatening symptoms, or symptoms that make it unsafe to drive or have someone drive you, please call 911. - Post Discharge Activity
--- NOTE | 2018-02-26 22:13 | PDOC ---
Attending Attestation - Resident Resident Name: KingDaniella - ED Attending Attestation I have performed the following: I have examined & evaluated the patient, The case was reviewed & discussed with the resident, I agree w/resident's findings & plan, Exceptions are as noted - HPI HPI: 02/26/18 22:13 22 yo female p/w asthma exacerbation - Physicial Exam PE: 02/27/18 00:19 22-year-old female presents with diffuse wheezing and coughing. Head normocephalic/atraumatic. Neck supple, no lymphadenopathy. CVS tachycardia. Lungs diffuse expiratory wheezing. Abdomen flat, nontender. Extremities no pain edema, no clubbing, no erythema Musculoskeletal no CVA tenderness. Neuro alert and oriented 3, ambulatory, no gross focal neural deficits. Skin warm and dry. Psych appropriate - Medical Decision Making 02/27/18 01:02 pt received 5x albuterol nebs,still diffuse wheezing,cxr neg will admit
[2018-02-26] MEDS ORDERED: MAGNESIUM SULF 50% (8.12 MEQ/2 ML-1 GM VIAL) IVPB ONE ×3 (22:23→23:51)
[2018-02-26] MEDS ORDERED: DEXAMETHASONE 4 MG TABLET (FP) PO ONE (22:23)
[2018-02-26] MEDS ORDERED: DEXAMETHASONE SOD PHOSPHATE 4 MG/1 ML VIAL ONE (22:35)
[2018-02-26] MEDS ORDERED: DEXAMETHASONE SOD PHOSPHATE 10 MG/1 ML VIAL IVPUSH ONE (22:45)
[2018-02-26] MEDS ORDERED: MAGNESIUM SULF 50% (8.12 MEQ/2 ML-1 GM VIAL) ONE (23:59)
[2018-02-27 00:32] LABS: BASO % 0.5 % (0-2.0); EOS % 2.7 % (0-4.5); HEMATOCRIT 41.9 % (32.4-45.2); HEMOGLOBIN 14.7 GM/dL (10.7-15.3); LYMPH % 11.3 % (8-40); MCH 32.7 pg (25.7-33.7); MEAN CELL VOLUME 93.4 fl (80-96); MEAN PLT VOLUME 7.9 fl (7.5-11.1); NEUT % 80.5 % (42.8-82.8); PLATELET COUNT 278 K/MM3 (134-434); RBC 4.48 M/mm3 (3.60-5.2); RDW 13.9 % (11.6-15.6)
[2018-02-27 00:55] LABS: ALBUMIN 4.1 g/dl (3.4-5.0); ALK PHOS 85 U/L (45-117); ANION GAP 15 (8-16); BILIRUBIN,TOTAL 0.4 mg/dL (0.2-1.0); BLOOD UREA NITROGEN 17 mg/dL (7-18); CALCIUM 9.4 mg/dL (8.5-10.1); CHLORIDE 103 mmol/L (98-107); CO2 24 mmol/L (21-32); CREATININE 0.8 mg/dL (0.55-1.02); GLUCOSE,RANDOM 106 mg/dL (74-106); MAGNESIUM 2.1 mg/dL (1.8-2.4); PHOSPHOROUS 3.5 mg/dL (2.5-4.9); POTASSIUM 3.4 mmol/L (3.5-5.1); SGOT/AST 15 U/L (15-37); SGPT/ALT 16 U/L (12-78); SODIUM 142 mmol/L (136-145); TOT PROT 7.4 g/dl (6.4-8.2)
--- NOTE | 2018-02-27 01:10 | PDOC ---
*Physical Exam - Vital Signs Last Vital Signs Temp Pulse Resp BP Pulse Ox 98.5 F 122 H 20 107/86 98 02/26/18 21:59 02/26/18 21:59 02/26/18 21:59 02/26/18 21:59 02/26/18 21:59 - Physical Exam Comments: 02/27/18 01:10 GENERAL: Awake, alert, and fully oriented, in no acute distress HEAD: No signs of trauma, normocephalic, atraumatic EYES: PERRLA, EOMI, sclera anicteric, conjunctiva clear ENT: Hearing grossly normal, nares patent, oropharynx clear without exudates. Moist mucosa NECK: Normal ROM, supple, no lymphadenopathy, JVD, or masses LUNGS: Diffuse exp rhonci. Absent rales. HEART: Regular rate and rhythm, normal S1 and S2, no murmurs, rubs or gallops, peripheral pulses normal and equal bilaterally. EXTREMITIES : Normal inspection, Normal range of motion, no edema. No clubbing or cyanosis. SKIN: Warm, Dry, normal turgor, no rashes or lesions noted ED Treatment Course - LABORATORY CBC & Chemistry Diagram: 02/27/18 00:10 02/26/18 00:10 - ADDITIONAL ORDERS Additional order review: Laboratory Results 02/26/18 02/26/18 22:40 00:10 Sodium 142 Potassium 3.4 L Chloride 103 Carbon Dioxide 24 Anion Gap 15 BUN 17 Creatinine 0.8 Creat Clearance w eGFR > 60 Random Glucose 106 Calcium 9.4 Phosphorus 3.5 Magnesium 2.1 Total Bilirubin 0.4 AST 15 ALT 16 Alkaline Phosphatase 85 Total Protein 7.4 Albumin 4.1 Urine HCG, Qual Negative 02/27/18 00:10 RBC 4.48 MCV 93.4 MCHC 35.0 RDW 13.9 MPV 7.9 Neutrophils % 80.5 D Lymphocytes % 11.3 D Monocytes % 5.0 Eosinophils % 2.7 Basophils % 0.5 - Medications Given in the ED: ED Medications Discontinued Medications Generic Name Dose Route Start Last Admin Trade Name Freq PRN Reason Stop Dose Admin Albuterol/Ipratropium 1 amp 02/26/18 22:04 02/26/18 22:04 Duoneb - NEB 02/26/18 22:05 1 amp NOW ONE Administration Albuterol/Ipratropium 3 amp 02/26/18 22:23 05/07/18 22:40 Duoneb - NEB 02/26/18 22:24 3 amp ONCE ONE Administration Albuterol/Ipratropium 2 amp 02/26/18 23:51 02/27/18 00:02 Duoneb - NEB 02/26/18 23:52 2 amp ONCE ONE Administration Dexamethasone 10 mg 02/26/18 22:23 02/26/18 22:40 Decadron - PO 02/26/18 22:24 Not Given ONCE ONE Dexamethasone Sodium Phosphate 10 mg 02/26/18 22:45 02/26/18 22:40 Decadron Injection - IVPUSH 02/26/18 22:46 10 mg ONCE ONE Administration Magnesium Sulfate 2 gm 02/26/18 22:23 02/26/18 22:48 Magnesium Sulfate IVPB 02/26/18 22:24 Not Given ONCE ONE Magnesium Sulfate 1 gm 02/26/18 22:23 02/26/18 22:48 Magnesium Sulfate IVPB 02/26/18 22:24 Not Given ONCE ONE Magnesium Sulfate 1 gm 02/26/18 23:51 02/27/18 00:02 Magnesium Sulfate IVPB 02/26/18 23:52 1 gm ONCE ONE Administration Medical Decision Making - Medical Decision Making 02/27/18 01:05 22 yo F with h/o asthma (last prednisone course one year ago, never admitted or intubated for her asthma, uses Albuterol MDI and neb treatments at home 2x/day at baseline), bronchitis (tx in October 2017 with abx), and smoking cigarettes who p/w SOB, wheezing, cough, chest tightness x 3 days. HR~122, and accessory muscle use on arrival, non hypoxic. ED course notable for 5 duonebs, Dexamethasone 10 mg, 1 GM magnesium sulfate with improvement in rhonci, and decreased No. CXR: Unremarkable. WBC: 18.0. CMP: Unremarkable. Recieved handoff from Dr. Arguelles. ED course: Plan to admit to med/surg obs for acute asthma exacerbation. *DC/Admit/Observation/Transfer Diagnosis at time of Disposition: Asthma exacerbation Qualifiers: Asthma severity: unspecified severity Asthma persistence: unspecified Qualified Code(s): J45.901 - Unspecified asthma with (acute) exacerbation - Discharge Dispostion Disposition: HOME Condition at time of disposition: Stable - Referrals - Patient Instructions Printed Discharge Instructions: Asthma -- Adult Additional Instructions: You were seen in the ER for asthma exacerbation. We gave you steroids and breathing treatments which resolved your symptoms while you were here in the department. We did blood work and a chest x-ray which did not show any concerning findings. After our assessment, we do not believe you are having a medical emergency at this time, and we believe you are safe to go home. We are sending a prescription for prednisone to your pharmacy. Please take the whole course as prescribed, and follow up with your regular doctor(s) in the next 1-3 days. Call their clinic [facility], tell them you were seen in the ER for asthma, and tell them you need an appointment. Please come back to the ER at any time (24 hours a day) for any new or worsening symptoms, like worsened wheezing/ shortness of breath that is not relieved with your home medications, new severe chest pain, loss of consciousness, or seizure. If you are having severe or life threatening symptoms, or symptoms that make it unsafe to drive or have someone drive you, please call 911. - Post Discharge Activity
--- NOTE | 2018-02-27 01:46 | PN ---
Teaching Attending Note Name of Resident: Aki Borges ATTENDING PHYSICIAN STATEMENT I saw and evaluated the patient. I reviewed the resident's note and discussed the case with the resident. I agree with the resident's findings and plan as documented. SUBJECTIVE: 22 yo M with hx. of Asthma ( was on Pred. 1 year ago, never intubated), She uses neb treatments around 2X/day at baseline, current smoker OBJECTIVE: Physical: VS: Vital Signs Period Temp Pulse Resp BP Sys/Martinez Pulse Ox Last 24 Hr 98.5 F 122 20 107/86 98 GEN: NAD, resting in bed, AA0X3 HEENT: NCAT, PERRL, Throat without erythema or exudates CARD: S Tach S1, S2 RESP: Bilateral course Expiratory Wheezing ABD: BSx4, NTD to palpation EXT: - C/C/E CBCD WBC 18.0 K/mm3 (4.0-10.0) H D 02/27/18 00:10 RBC 4.48 M/mm3 (3.60-5.2) 02/27/18 00:10 Hgb 14.7 GM/dL (10.7-15.3) 02/27/18 00:10 Hct 41.9 % (32.4-45.2) 02/27/18 00:10 MCV 93.4 fl (80-96) 02/27/18 00:10 MCHC 35.0 g/dl (32.0-36.0) 02/27/18 00:10 RDW 13.9 % (11.6-15.6) 02/27/18 00:10 Plt Count 278 K/MM3 (134-434) 02/27/18 00:10 MPV 7.9 fl (7.5-11.1) 02/27/18 00:10 CMP Sodium 142 mmol/L (136-145) 02/26/18 00:10 Potassium 3.4 mmol/L (3.5-5.1) L 02/26/18 00:10 Chloride 103 mmol/L (98-107) 02/26/18 00:10 Carbon Dioxide 24 mmol/L (21-32) 02/26/18 00:10 Anion Gap 15 (8-16) 02/26/18 00:10 BUN 17 mg/dL (7-18) 02/26/18 00:10 Creatinine 0.8 mg/dL (0.55-1.02) 02/26/18 00:10 Creat Clearance w eGFR > 60 (>60) 02/26/18 00:10 Random Glucose 106 mg/dL (74-106) 02/26/18 00:10 Calcium 9.4 mg/dL (8.5-10.1) 02/26/18 00:10 Total Bilirubin 0.4 mg/dL (0.2-1.0) 02/26/18 00:10 AST 15 U/L (15-37) 02/26/18 00:10 ALT 16 U/L (12-78) 02/26/18 00:10 Alkaline Phosphatase 85 U/L (45-117) 02/26/18 00:10 Total Protein 7.4 g/dl (6.4-8.2) 02/26/18 00:10 Albumin 4.1 g/dl (3.4-5.0) 02/26/18 00:10 ASSESSMENT AND PLAN: 22 yo M with hx. of Asthma ( was on Pred. 1 year ago, never intubated), She uses neb treatments around 2X/day at baseline, current smoker, being admitted for acute asthma exacerbation 1.) Acute Exacerbation of Asthma - Duonebs AtC/PRN - Dexamethasone, given in ED - If improved can give Prednisone in Am and taper - S/P Mag - Check Peak Flow 2.) Tobacco Use - Advise Smoking Cessation 3.) Dvt Ppx - Ambulate Place in Obs
--- NOTE | 2018-02-27 01:56 | HP ---
CHIEF COMPLAINT: shortness of breath/chest tightness PCP: None HISTORY OF PRESENT ILLNESS: 22yo young woman, active smoker, with PMH of asthma (no intubations or related hospitalizations; last on steroids ~1year ago) who presents to ED with worsening shortness of breath and chest tightness for the past thre days. She does not see a doctor regularly, but goes to the [facility] for asthma prescriptions (Ventolin pump and "nebulizer", but can't recall medication). She has not used the Ventolin pump for "months", but started to use it twice per day when her symptoms started three days ago. She also tried using her Nebulizer , but could not recall how often. She denies any recent URI symptoms, fever, chills, recent sick contacts. ER course was notable for: (1) Received Decadron 10mg IVP, Duo nebs x 6, Mg 1gm IVP (2) PFT: 240, 200, 210 (likely poor effort noted) (3) CXR: no acute pathology Recent Travel: none PAST MEDICAL HISTORY: see HPI PAST SURGICAL HISTORY: Social History: in school Smokin cigarettes per day x 3 years Alcohol: denies Drugs: denies Family History: non-contributory Allergies: NKDA HOME MEDICATIONS: Home Medications Medication Instructions Recorded Albuterol Sulfate Inhaler - 1 - 2 inh PO Q4H PRN #1 inhaler 10/24/17 [Ventolin HFA Inhaler -] Methocarbamol [Robaxin -] 500 mg PO TID #21 tablet 02/18/18 REVIEW OF SYSTEMS CONSTITUTIONAL: Absent: fever, chills, diaphoresis, generalized weakness, malaise, loss of appetite, weight change HEENT: Absent: rhinorrhea, nasal congestion, throat pain, throat swelling, difficulty swallowing, mouth swelling, ear pain, eye pain, visual changes CARDIOVASCULAR: Absent: chest pain, syncope, palpitations, irregular heart rate, lightheadedness , peripheral edema RESPIRATORY: + shortness of breath, dyspnea with exertion Absent: cough, orthopnea, wheezing, stridor, hemoptysis GASTROINTESTINAL: +nausea Absent: abdominal pain, abdominal distension, vomiting, diarrhea, constipation, melena, hematochezia GENITOURINARY: Absent: dysuria, frequency, urgency, hesitancy, hematuria, flank pain, genital pain MUSCULOSKELETAL: Absent: myalgia, arthralgia, joint swelling, back pain, neck pain SKIN: Absent: rash, itching, pallor HEMATOLOGIC/IMMUNOLOGIC: Absent: easy bleeding, easy bruising, lymphadenopathy, frequent infections ENDOCRINE: Absent: unexplained weight gain, unexplained weight loss, heat intolerance, cold intolerance NEUROLOGIC: Absent: headache, focal weakness or paresthesias, dizziness, unsteady gait, seizure, mental status changes, bladder or bowel incontinence PSYCHIATRIC: Absent: anxiety, depression, suicidal or homicidal ideation, hallucinations. PHYSICAL EXAMINATION Vital Signs - 24 hr 02/26/18 21:59 Temperature 98.5 F Pulse Rate 122 H Respiratory 20 Rate Blood Pressure 107/86 O2 Sat by Pulse 98 Oximetry (%) GENERAL: aaox3, nad, speaking in full sentences without dyspnea HEENT: sclera anicteric, conjunctiva clear, no pharyngeal erythema, oropharynx clear without exudates, mmm LUNGS: +airway entry, b/l scattered expiratory wheezing, no accessory muscle use HEART: rrr, normal s1/s2, no m/r/g ABDOMEN: soft, NTND. LOWER EXTREMITIES: wwp, no edema CBC, BMP 02/27/18 00:10 02/26/18 00:10 02/26/18 00:10 Calcium 9.4 Phosphorus 3.5 Magnesium 2.1 Hepatic Panel Total Bilirubin 0.4 mg/dL (0.2-1.0) 02/26/18 00:10 AST 15 U/L (15-37) 02/26/18 00:10 ALT 16 U/L (12-78) 02/26/18 00:10 Alkaline Phosphatase 85 U/L (45-117) 02/26/18 00:10 Albumin 4.1 g/dl (3.4-5.0) 02/26/18 00:10 02/26/18 22:40 Urine HCG, Qual Negative CXR 02/27/18: no focal consolidations, pleural effusions, or pneumothorax, no cardiomegaly EKG: sinus tachycardia, rate 111, QTc 429 Active Medications Albuterol Sulfate (Ventolin 0.083% Nebulizer Soln -) 1 amp NEB Q4H PRN PRN Reason: SHORT OF BREATH/WHEEZING Albuterol/Ipratropium (Duoneb -) 1 amp NEB RQID ESTELLE ASSESSMENT/PLAN: 22yo young woman, current smoker, with PMH of asthma who p/w increasing sob and chest tightness x 3 days and found to have acute asthma exacerbation. #Asmtha exacerbation -Duo nebs RQID + Albuterol nebs Q4H PRN -Check Peak flow in AM -Consider Prednisone PO taper in AM if breathing improves (received 1x Decadron 10mg IVP in ED only with improvement) #nicotine dependence - cessation counseling #FEN PO intake hypoK (3.4) --> repleted with KCl 20mEq PO Regular diet #PPX - Early Ambulation #DISPO: observation FULL code d/w Dr. Delmy Harris MD PGY1 - Internal Medicine, Night Manager Terminal Visit type - Emergency Visit Emergency Visit: Yes ED Registration Date: 02/27/18 Care time: The patient presented to the Emergency Department on the above date and was hospitalized for further evaluation of their emergent condition. - New Patient This patient is new to me today: Yes Date on this admission: 02/27/18 - Critical Care Critical Care patient: No Hospitalist Screening - Colonoscopy Questionnaire Colonoscopy Questionnaire: Colonoscopy Questionnaire - Patient: 50 - 75 years old and never had a screening colonoscopy: No History of colon or rectal polyps, or CA: Unknown History of IBD, Crohn's disease or UC: Unknown History of abdominal radiation therapy as a child: Unknown - Relative: 1 with colon or rectal CA, or polyps at age 60 or younger: Unknown Colon or rectal CA diagnosed at age 45 or younger: Unknown Multiple relatives with colon or rectal CA: Unknown - Outcome: Screening Result: Negative Screen
[2018-02-27] MEDS ORDERED: ALBUTEROL SO4 0.083% IH SOL 2.5 MG/3 ML VIAL.NEB. NEB PRN (01:57)
[2018-02-27] MEDS ORDERED: POTASSIUM CHLORIDE ORAL LIQUID 20 MEQ/15 ML PO ONE (02:00)
[2018-02-27] MEDS ORDERED: POTASSIUM CHLORIDE ORAL LIQUID 20 MEQ/15 ML ONE (02:12)
[2018-02-27 03:52] VITALS: BMI 17.2
[2018-02-27 07:25] LABS: BASO % 0.1 % (0-2.0); HEMATOCRIT 40.6 % (32.4-45.2); HEMOGLOBIN 13.7 GM/dL (10.7-15.3); LYMPH % 4.4 % (8-40); MCH 31.7 pg (25.7-33.7); MCHC 33.7 g/dl (32.0-36.0); MEAN CELL VOLUME 94.3 fl (80-96); MEAN PLT VOLUME 7.6 fl (7.5-11.1); MONO % 0.9 % (3.8-10.2); NEUT % 94.6 % (42.8-82.8); PLATELET COUNT 283 K/MM3 (134-434); RBC 4.31 M/mm3 (3.60-5.2); WHITE BLOOD COUNT 12.6 K/mm3 (4.0-10.0)
[2018-02-27 07:58] LABS: CHLORIDE 106 mmol/L (98-107); POTASSIUM 4.6 mmol/L (3.5-5.1); SODIUM 138 mmol/L (136-145)
[2018-02-27] MEDS: ALBUTEROL SO4 2.5/IPRATROPIUM 0.5 INH SOL 3 ML VIAL.NEB. NEB SCH ×3 (08:06→16:20)
[2018-02-27 08:12] LABS: ANION GAP 9 (8-16); BLOOD UREA NITROGEN 15 mg/dL (7-18); CALCIUM 8.9 mg/dL (8.5-10.1); CO2 23 mmol/L (21-32); CREATININE 0.6 mg/dL (0.55-1.02); GLUCOSE,RANDOM 162 mg/dL (74-106); MAGNESIUM 2.6 mg/dL (1.8-2.4)
--- NOTE | 2018-02-27 10:01 | EKG ---
Test Reason : Blood Pressure : / mmHG Vent. Rate : 111 BPM Atrial Rate : 111 BPM P-R Int : 114 ms QRS Dur : 072 ms QT Int : 316 ms P-R-T Axes : 084 081 052 degrees QTc Int : 429 ms SINUS TACHYCARDIA BIATRIAL ENLARGEMENT NONSPECIFIC ST ABNORMALITY ABNORMAL ECG WHEN COMPARED WITH ECG OF 24-OCT-2017 07:44, NONSPECIFIC T WAVE ABNORMALITY NOW EVIDENT IN INFERIOR LEADS Confirmed by MD Kay, Azael ([id number]) on 02/27/2018 10:01:05 AM Referred By: Confirmed By:Azael Villanueva MD
[2018-02-27] MEDS ORDERED: FLUTICASONE/SALMETEROL 100 MCG/50 MCG DISKUS IH SCH (15:30)
[2018-02-27] MEDS ORDERED: predniSONE 20 MG TABLET (UD) PO SCH (15:30)
--- NOTE | 2018-02-27 16:08 | PN ---
Teaching Attending Note Name of Resident: Geeta Liu ATTENDING PHYSICIAN STATEMENT I saw and evaluated the patient. I reviewed the resident's note and discussed the case with the resident. I agree with the resident's findings and plan as documented. SUBJECTIVE: No fever or chills . denies any SOB. no cough . feels much better than yesterday OBJECTIVE: NAD Cv : RRR Lungs: CTAB , slightly prolonged exp phase. no wheezing herad. very good air entry Ext: no edmea abd: soft, Nt, ND , NL BS ASSESSMENT AND PLAN: 22 y/o lady with h/o Asthma, and no follow up who presented with SOB and wheexzing and was found tohave acute asthma exacerbation 1- Acute asthma exacerbation . sx improved significantly . - start prednisone - peak flow 300 much improved - cxray with no PNA . leukocytosis is likely reactive . No abx indicated - add advair. if cont to do well this afternoon. will dc home need f/u with pulm .
--- NOTE | 2018-02-27 19:43 | DS ---
Physical Exam: SUBJECTIVE: Patient seen and examined at bedside. States that she is feeling better, and that her breathing has improved significantly. She is with nonproductive cough. Pt requests additional breathing treatment prior to d/c. Denies BETTENCOURT, fever, chills, SOB, or changes in urinary or bowel function. OBJECTIVE: Vital Signs Period Temp Pulse Resp BP Sys/Martinez Pulse Ox Last 24 Hr 97.5 F-98.5 F 78-122 16-20 100-107/52-86 96-98 PHYSICAL EXAM GENERAL: Pleasant female. awake, alert, and fully oriented, in no acute distress. HEAD: Normal with no signs of trauma. EYES: PERRL, extraocular movements intact, sclera anicteric, conjunctiva clear. ENT: Ears normal, nares patent, oropharynx clear without exudates, moist mucous membranes. NECK: Trachea midline, full range of motion, supple. LUNGS: Breath sounds equal, clear to auscultation bilaterally, no wheezes, no crackles, no accessory muscle use. HEART: Regular rate and rhythm, S1, S2 without murmur, rub or gallop. ABDOMEN: Soft, nontender, nondistended, normoactive bowel sounds, no guarding, no rebound, no hepatosplenomegaly, no masses. EXTREMITIES: 2+ posterior tibial pulses, warm, well-perfused, no edema. NEUROLOGICAL: Cranial nerves II through XII grossly intact. Normal speech PSYCH: Positive mood, normal affect. SKIN: Warm, dry, normal turgor, no rashes or lesions noted. LABS Laboratory Results - last 24 hr 02/26/18 02/26/18 02/27/18 00:10 22:40 00:10 WBC 18.0 H D RBC 4.48 Hgb 14.7 Hct 41.9 MCV 93.4 MCH 32.7 MCHC 35.0 RDW 13.9 Plt Count 278 MPV 7.9 Neutrophils % 80.5 D Lymphocytes % 11.3 D Monocytes % 5.0 Eosinophils % 2.7 Basophils % 0.5 Sodium 142 Potassium 3.4 L Chloride 103 Carbon Dioxide 24 Anion Gap 15 BUN 17 Creatinine 0.8 Creat Clearance w eGFR > 60 Random Glucose 106 Calcium 9.4 Phosphorus 3.5 Magnesium 2.1 Total Bilirubin 0.4 AST 15 ALT 16 Alkaline Phosphatase 85 Total Protein 7.4 Albumin 4.1 Urine HCG, Qual Negative 02/27/18 02/27/18 06:00 06:00 WBC 12.6 H RBC 4.31 Hgb 13.7 Hct 40.6 MCV 94.3 MCH 31.7 MCHC 33.7 RDW 14.0 Plt Count 283 MPV 7.6 Neutrophils % 94.6 H Lymphocytes % 4.4 L D Monocytes % 0.9 L D Eosinophils % 0.0 D Basophils % 0.1 Sodium 138 Potassium 4.6 Chloride 106 Carbon Dioxide 23 Anion Gap 9 BUN 15 Creatinine 0.6 Creat Clearance w eGFR Random Glucose 162 H Calcium 8.9 Phosphorus Magnesium 2.6 H Total Bilirubin AST ALT Alkaline Phosphatase Total Protein Albumin Urine HCG, Qual Radiology CXR: with hyperinflation, however without infiltrates or acute pathology HOSPITAL COURSE: Date of Admission:02/27/18 Date of Discharge: 02/27/18 Admit diagnosis: asthma exacerbation 22 y/o F with hx active smoking (4 cigs/day for past three years), asthma, without past intubations or hospitalizations, who presented to the ED with SOB and chest tightness for three days. Pt was admitted to the floor for an asthma exacerbation and was maintained on albuterol PRN and duoneb treatments. During her stay, pt recovered quickly, improving her peak flow from 200 (on admission) to over 300 on d/c. Pt sent home on advair BID, prednisone six-day taper, duoneb tx (with machine at home), and albuterol PRN. She is recommended f/u with Dr. Lange in one week. Smoking cessation was also discussed; she expressed verbal understanding and interest in quitting. Minutes to complete discharge: 32 Discharge Summary Reason For Visit: EXACERBATION OF ASTHMA Current Active Problems Asthma exacerbation (Acute) Condition: Stable - Instructions Diet, Activity, Other Instructions: You were recently in the hospital for an asthma exacerbation. While you were in the hospital, you received nebulizer treatments and albuterol to open up your airways. You were also started on a steroid, prednisone 40mg that you will continue on. Please continue the taper as is designated. You have been given 5mg tablets of prednisone (deltasone). Please take 8 tablets tomorrow, 7 the subsequent day, in descending order to complete a six-day taper. We are also sending you home with a ventolin (albuterol) inhaler that you may use as needed, as well as advair (use twice a day), and nebulizer treatments. You may use your nebulizer machine as we discussed. Please follow with a lung doctor, Dr. Lange in a week to discuss your hospital visit. If you develop severe shortness of breath or chest pain, please return to the hospital. We hope you feel better soon. Referrals: Nigel Lange MD [Staff Physician] - 1 Week Disposition: HOME - Home Medications Comprehensive Discharge Medication List: Ambulatory Orders Albuterol Sulfate Inhaler - [Ventolin HFA Inhaler -] 1 - 2 inh PO Q4H PRN #1 inhaler 10/24/17 Albuterol 0.083% Nebulizer Cristel [Ventolin 0.083% Nebulizer Soln -] 1 amp NEB Q4H PRN #1 amp 02/27/18 Nebulizer and Compressor [[place] Choice Nebulizer] 1 each MC Q4H PRN #1 each 06/09 Salmeterol/Fluticasone [Advair 100Mcg/50Mcg -] 1 inh PO BID #1 diskus 02/27/18 predniSONE [Deltasone -] 5 mg PO ASDIR #32 tab 02/27/18 This patient is new to me today: Yes Date on this admission: 02/27/18 Emergency Visit: No Critical Care patient: No - Discharge Referral Referred to [facility] Med [facility] No
[2018-02-27 20:12] VITALS: BP 94/59; PULSE 73; TEMP 97.8
== END 2018-02-27 20:05 | disposition home or self-care (01) ==
LOC: JER 21:52 → JERBED 02-27 01:16 → J7W 02-27 03:06
PROVIDERS: ADMIT Internal Medicine; ATTEND Internal Medicine
PROC: 3E033GC Introduction of Other Therapeutic Substance into Peripheral Vein, Percutaneous Approach (ICD-10-PCS; principal; 2018-02-27)
PROC: 3E0F7GC Introduction of Other Therapeutic Substance into Respiratory Tract, Via Natural or Artificial Opening (ICD-10-PCS; 2018-02-27)
DX: J45.901 Unspecified asthma with (acute) exacerbation (principal); F17.210 Nicotine dependence, cigarettes, uncomplicated
CPT/HCPCS: 36415; 71045-TC-FY; 80048; 80053; 83735; 84100; 84703; 85025; 93005; 93010; 94150; 94640; 96374; 96375; 99282-25; G0378; J1100; J7620

== ENCOUNTER 2018-12-15 01:10 | Emergency (ER) | payer OTHER ==
[2018-12-15 01:18] VITALS: BP 118/74; PULSE 80; TEMP 97.6; BMI 23.4
--- NOTE | 2018-12-15 01:51 | PDOC ---
Attending Attestation - Resident Resident Name: Shin Rivera - ED Attending Attestation I have performed the following: I have examined & evaluated the patient, The case was reviewed & discussed with the resident, I agree w/resident's findings & plan - HPI HPI: 12/15/18 04:13 Pt comes with questionable threatened ab. - Physicial Exam PE: 12/15/18 04:14 Agree with exam - Medical Decision Making 12/15/18 04:13 Patient Name: SANGEETHA SCOTT THIS IS A PRELIMINARY REPORT FROM IMAGING INFORMATION TECHNOLOGY TECHNICIAN EXAM: Obstetrical ultrasound, transabdominal and transvaginal, less than 14 weeks, multi gestation IMAGES:34 DATE OF EXAM: 2018-12-15 01:57:03 REASON FOR EXAM: Vaginal bleeding COMPARISON: None Findings: Live dichorionic diamniotic twin intrauterine gestation. Twin A measures approximately 6 weeks and 4 days based on crown-rump length of 7 mm. heart rate noted at 137 bpm. Twin B measures approximately 6 weeks and 2 days based on crown-rump length of 5 mm. heart rate noted at 140 bpm. Cervix appears closed. Small nabothian cyst in the cervix. Maternal ovaries appear normal with flow. No significant free pelvic fluid. 12/15/18 04:14 FOllow with TELECOMMUNICATOR 12/15/18 04:29 UA pending. Opositive blood; potassium repeated
[2018-12-15] MEDS ORDERED: SODIUM CHLORIDE 1,000 ML IV STA (01:57)
--- NOTE | 2018-12-15 02:28 | PDOC ---
History of Present Illness - General Chief Complaint: Vaginal Bleeding Stated Complaint: VAGINAL BLEEDING Time Seen by Provider: 12/15/18 01:48 History Source: Patient Exam Limitations: No Limitations - History of Present Illness Initial Comments: 23 yo F w a pmh of asthma presents to the ER with vaginal bleeding and lower abdominal pain. Her LMP was Oct 24. She went to [facility] on Dec 10 and was diagnosed with a twin IUP. She endorses a significant amount of nausea but no recent vomiting. She came into the ER today because she was nervous that the bleeding meant she might be having an . She endorses chronic SOB secondary to her asthma which has not changed anytime recently. Denies chest pain, headache, blurry vision, dysuria, frequency, urgency, diarrhea, constipation PCP: None OB: None Soc hx: Former smoker stopped when she learned she is . Allergies: NKA, NKDA PSH: None reported Past History - Past Medical History Allergies/Adverse Reactions: Allergies Allergy/AdvReac Type Severity Reaction Status Date / Time No Known Allergies Allergy Verified 12/15/18 01:17 Home Medications: Ambulatory Orders Albuterol Sulfate Inhaler - [Ventolin HFA Inhaler -] 1 - 2 inh PO Q4H PRN #1 inhaler 10/24/17 Albuterol 0.083% Nebulizer Cristel [Ventolin 0.083% Nebulizer Soln -] 1 amp NEB Q4H PRN #1 amp 02/27/18 Nebulizer and Compressor [[place] Choice Nebulizer] 1 each MC Q4H PRN #1 each 06/09 Salmeterol/Fluticasone [Advair 100Mcg/50Mcg -] 1 inh PO BID #1 diskus 02/27/18 predniSONE [Deltasone -] 5 mg PO ASDIR #32 tab 02/27/18 Doxylamine Succinate/Vit B6 [Aliya Barrera 10-10 mg Tablet] 1 each PO PRN #14 tablet. 12/15/18 Asthma: Yes COPD: No - Immunization History Immunization Up to Date: Yes - Suicide/Smoking/Psychosocial Hx Smoking Status: No Smoking History: Never smoked Have you smoked in the past 12 months: No Number of Cigarettes Smoked Daily: 4 Cigars Per Day: 0 Information on smoking cessation initiated: No 'Breaking Loose' booklet given: 02/27/18 Hx Alcohol Use: No Drug/Substance Use Hx: No Substance Use Type: None Hx Substance Use Treatment: No Review of Systems - Review of Systems Able to Perform ROS?: Yes Comments:: CONSTITUTIONAL: Absent: fever, no chills, no fatigue EYES: Absent: visual changes ENT: Absent: ear pain, no sore throat CARDIOVASCULAR: Absent: chest pain, no palpitations RESPIRATORY: Absent: cough, no SOB GI: Present: Abdominal pain, nausea Absent: no vomiting, no constipation, no diarrhea GENITOURINARY: Present: Frequency Absent: dysuria, no hematuria MUSKULOSKELETAL: Absent: back pain, no arthralgia, no myalgia SKIN: Absent: rash NEURO: Absent: headache *Physical Exam - Vital Signs Last Vital Signs Temp Pulse Resp BP Pulse Ox 97.6 F 80 18 118/74 99 12/15/18 01:17 12/15/18 01:17 12/15/18 01:17 12/15/18 01:17 12/15/18 01:17 - Physical Exam Comments: GENERAL: Well-appearing, well-nourished. No apparent distress. HEENT: Normocephalic, atraumatic. PERRL, EOM intact. CARDIOVASCULAR: Normal S1, S2. Regular rate and rhythm. PULMONARY: Minimal wheezing. No evidence of respiratory distress. Lungs clear to auscultation bilaterally. No rales or rhonchi. ABDOMEN: Soft, non-distended, non-tender. EXTREMITIES: Normal ROM in all four extremities. No gross deformities. SKIN: Warm, dry. No rash NEUROLOGICAL: No focal neurological deficits. Respiratory/Chest: positive: Wheezing Female Pelvic Exam: positive: normal external exam, cervical os closed. negative: CMT, discharge, lesions Moderate Sedation - Procedure Monitoring Vital Signs: Procedure Monitoring Vital Signs Temperature 97.6 F 12/15/18 01:17 Pulse Rate 80 12/15/18 01:17 Respiratory Rate 18 12/15/18 01:17 Blood Pressure 118/74 12/15/18 01:17 O2 Sat by Pulse Oximetry (%) 99 12/15/18 01:17 ED Treatment Course - LABORATORY CBC & Chemistry Diagram: 12/15/18 03:12 12/15/18 03:12 - RADIOLOGY Radiology Studies Ordered: Category Date Time Status TRANSVAGINAL US PREG [US] Stat Ultrasound 12/15/18 01:54 Taken Medical Decision Making - Medical Decision Making 23 yo F w a pmh of asthma presents to the ER with vaginal bleeding and lower abdominal pain. Her LMP was Oct 24. She went to [facility] on Dec 10 and was diagnosed with a twin IUP. She endorses a significant amount of nausea but no recent vomiting. She came into the ER today because she was nervous that the bleeding meant she might be having an . She endorses chronic SOB secondary to her asthma which has not changed anytime recently. VS: WNL DDx IBNLT: , threatened, vs inevitable, ovarian cyst/torsion, ectopic preg, heterotopic preg. Plan: Labs, Urine, TVUS, IV hydration, analgesia, re-assess. Pelvic Exam: Cervix is closed. No CMT or adnexal tenderness. TVUS: Live dichorionic diamniotic twin gestation. Patient feels well after IV hydration and offirmev. Sending Aliya to pharmacy to help with hyperemesis *DC/Admit/Observation/Transfer Diagnosis at time of Disposition: Threatened - Discharge Dispostion Disposition: HOME Condition at time of disposition: Improved Decision to Admit order: No - Prescriptions Prescriptions: Doxylamine Succinate/Vit B6 [Aliya Barrera 10-10 mg Tablet] 1 each PO PRN #14 tablet.dr - Referrals Referrals: Melyssa Lantigua MD [Staff Physician] - - Patient Instructions Printed Discharge Instructions: DI for Threatened Additional Instructions: You came into the ER with abdominal pain and vaginal bleeding. We did an ultrasound which showed both of your pregnancies are inside your uterus. It is extremely important for you to schedule an appointment with an OB doc in the next 24 to 48 hours to make sure you are being followed and taken care. Come back to the ER if your pain worsens, you can't eat or drink, can't stop vomiting, or have any other new or worsening concerns. Thank you for coming to the [facility] ER. We hope you feel better soon! Print Language: NIGERIAN - Post Discharge Activity
[2018-12-15] MEDS ORDERED: ALBUTEROL SO4 2.5/IPRATROPIUM 0.5 INH SOL 3 ML VIAL.NEB. NEB ONE ×2 (02:29→03:26)
[2018-12-15] MEDS ORDERED: ACETAMINOPHEN 1000 MG/100 ML VIAL (NON FORMULARY) IVPB ONE (02:29)
[2018-12-15] MEDS ORDERED: ACETAMINOPHEN INJECTION 100 ML IVPB ONE (03:26)
[2018-12-15 03:33] LABS: BASO % 0.2 % (0-2.0); EOS % 2.1 % (0-4.5); HEMATOCRIT 42.1 % (32.4-45.2); HEMOGLOBIN 14.7 GM/dL (10.7-15.3); LYMPH % 31.7 % (8-40); MCH 32.7 pg (25.7-33.7); MCHC 34.9 g/dl (32.0-36.0); MEAN CELL VOLUME 93.8 fl (80-96); MEAN PLT VOLUME 8.1 fl (7.5-11.1); MONO % 7.2 % (3.8-10.2); NEUT % 58.8 % (42.8-82.8); PLATELET COUNT 329 K/MM3 (134-434); RBC 4.49 M/mm3 (3.60-5.2); RDW 13.5 % (11.6-15.6); WHITE BLOOD COUNT 12.7 K/mm3 (4.0-10.0)
[2018-12-15 03:56] LABS: INR 1.12 (0.83-1.09); PROTHROMBIN TIME (PATIENT) 13.2 SEC (9.7-13.0)
[2018-12-15 04:00] LABS: ALBUMIN 3.6 g/dl (3.4-5.0); ALK PHOS 58 U/L (45-117); ANION GAP 6 MMOL/L (8-16); BILIRUBIN,TOTAL 0.6 mg/dL (0.2-1); BLOOD UREA NITROGEN 7 mg/dL (7-18); CALCIUM 8.4 mg/dL (8.5-10.1); CHLORIDE 106 mmol/L (98-107); CO2 24 mmol/L (21-32); CREATININE 0.5 mg/dL (0.55-1.3); GLUCOSE,RANDOM 78 mg/dL (74-106); POTASSIUM 3.4 mmol/L (3.5-5.1); SGOT/AST 8 U/L (15-37); SGPT/ALT 15 U/L (13-61); SODIUM 136 mmol/L (136-145); TOT PROT 6.5 g/dl (6.4-8.2)
[2018-12-15] MEDS ORDERED: POTASSIUM CHLORIDE TABS 20 MEQ TABLET.ER (FP) PO ONE ×2 (04:29→04:37)
[2018-12-15 04:48] LABS: HCG,QUALITATIVE URINE Positive
[2018-12-15 04:52] LABS: URINE APPEARANCE CLOUDY; URINE BILIRUBIN NEGATIVE (<2.0 mg/dL); URINE COLOR YELLOW; URINE GLUCOSE (UA) NEGATIVE (NEGATIVE); URINE KETONE 2+ (NEGATIVE); URINE LEUK ESTERASE NEGATIVE (NEGATIVE); URINE NITRITE NEGATIVE (NEGATIVE); URINE PROTEIN NEGATIVE (NEGATIVE); URINE UROBILINOGEN 4.0 E.U/dl mg/dL (0.2-1.0)
[2018-12-15 04:56] LABS: EPI CELLS RARE /HPF (FEW); URINE MUCUS FEW
== END 2018-12-15 05:38 | disposition home or self-care (01) ==
LOC: JER 01:10
PROC: 3E0F7GC Introduction of Other Therapeutic Substance into Respiratory Tract, Via Natural or Artificial Opening (ICD-10-PCS; principal; 2018-12-15)
PROC: 3E033GC Introduction of Other Therapeutic Substance into Peripheral Vein, Percutaneous Approach (ICD-10-PCS; 2018-12-15)
PROC: 3E0337Z Introduction of Electrolytic and Water Balance Substance into Peripheral Vein, Percutaneous Approach (ICD-10-PCS; 2018-12-15)
DX: O26.891 Other specified pregnancy related conditions, first trimester (principal); O20.0 Threatened abortion; O99.511 Diseases of the respiratory system complicating pregnancy, first trimester; J45.909 Unspecified asthma, uncomplicated; Z3A.01 Less than 8 weeks gestation of pregnancy; O34.81 Maternal care for other abnormalities of pelvic organs, first trimester; N94.89 Other specified conditions associated with female genital organs and menstrual cycle
CPT/HCPCS: 36415; 76817-TC; 80053; 81003; 81015; 84702; 84703; 85025; 85610; 86850; 86900; 86901; 87086; 94640; 96361; 96374; 99283-25; J0131; J7030

== ENCOUNTER 2019-01-04 10:19 | Emergency (ER) | payer SELFPAY ==
[2019-01-04 10:50] VITALS: BMI 18.3
--- NOTE | 2019-01-04 13:15 | PDOC ---
History of Present Illness - General Chief Complaint: Nausea/Vomiting Stated Complaint: 9 WKS, ABD PAIN Time Seen by Provider: 01/04/19 12:31 History Source: Patient Exam Limitations: No Limitations Past History - Past Medical History Allergies/Adverse Reactions: Allergies Allergy/AdvReac Type Severity Reaction Status Date / Time No Known Allergies Allergy Verified 01/04/19 10:45 Home Medications: Ambulatory Orders Albuterol Sulfate Inhaler - [Ventolin HFA Inhaler -] 1 - 2 inh PO Q4H PRN #1 inhaler 10/24/17 Albuterol 0.083% Nebulizer Cristel [Ventolin 0.083% Nebulizer Soln -] 1 amp NEB Q4H PRN #1 amp 02/27/18 Nebulizer and Compressor [[place] Choice Nebulizer] 1 each MC Q4H PRN #1 each 06/09 Salmeterol/Fluticasone [Advair 100Mcg/50Mcg -] 1 inh PO BID #1 diskus 02/27/18 predniSONE [Deltasone -] 5 mg PO ASDIR #32 tab 02/27/18 Doxylamine Succinate/Vit B6 [Aliya Barrera 10-10 mg Tablet] 1 each PO PRN #14 tablet. 12/15/18 Cephalexin Monohydrate [Keflex -] 500 mg PO Q6H #40 capsule 01/04/19 Pyridoxine HCl (Vitamin B6) [Pyridoxine HCl] 25 mg PO TID PRN #20 tablet Asthma: Yes COPD: No - Reproductive History (#): 2 Para: 0 Cervical CA: No Dysfunctional Uterine Bleeding: No Ectopic : No Endometrial CA: No Polycystic Ovaries: No Therapeutic (s) & number: Yes (1) Tubal Ligation: No Spontaneous : 1 - Immunization History Immunization Up to Date: Yes - Suicide/Smoking/Psychosocial Hx Smoking Status: No Smoking History: Never smoked Have you smoked in the past 12 months: No Number of Cigarettes Smoked Daily: 4 Cigars Per Day: 0 'Breaking Loose' booklet given: 02/27/18 Hx Alcohol Use: No Drug/Substance Use Hx: No Substance Use Type: None Hx Substance Use Treatment: No *Physical Exam - Vital Signs Last Vital Signs Temp Pulse Resp BP Pulse Ox 98.8 F 77 20 91/50 L 99 01/04/19 10:35 01/04/19 10:35 01/04/19 10:35 01/04/19 10:35 01/04/19 10:35 Moderate Sedation - Procedure Monitoring Vital Signs: Procedure Monitoring Vital Signs Temperature 98.8 F 01/04/19 10:35 Pulse Rate 77 01/04/19 10:35 Respiratory Rate 20 01/04/19 10:35 Blood Pressure 91/50 L 01/04/19 10:35 O2 Sat by Pulse Oximetry (%) 99 01/04/19 10:35 ED Treatment Course - LABORATORY CBC & Chemistry Diagram: 01/04/19 13:02 01/04/19 13:02 *DC/Admit/Observation/Transfer Diagnosis at time of Disposition: demise Qualifiers: Weeks of gestation: 9 weeks Qualified Code(s): Z3A.09 - 9 weeks gestation of - Discharge Dispostion Disposition: HOME Decision to Admit order: No - Prescriptions Prescriptions: Cephalexin Monohydrate [Keflex -] 500 mg PO Q6H #40 capsule Pyridoxine HCl (Vitamin B6) [Pyridoxine HCl] 25 mg PO TID PRN #20 tablet PRN Reason: Nausea - Referrals Referrals: Chelsey Sprague MD [Staff Physician] - - Patient Instructions Printed Discharge Instructions: DI for Threatened Additional Instructions: you were seen in the emergency department for the evaluation of your nausea and vomiting. your US shows that you have 1 live single intrauterine that is 9 weeks 4 day GA. However, you have a second fetus that appears to have demise. please follow up with your OBGYN doctor or Dr. Sprague next week ( within 7 days) for follow up care and management. i prescribed you vitamin B6 and take as directed. please return to the emergency department if you have worsening pain or new concerning symptoms such as fever, weakness, and uncontrollable nausea and vomiting. also present back if there is significant bleeding. thank you. - Post Discharge Activity
[2019-01-04] MEDS ORDERED: ONDANSETRON 4 MG/2 ML VIAL IVPUSH ONE (13:33)
[2019-01-04] MEDS ORDERED: ACETAMINOPHEN 1000 MG/100 ML VIAL (NON FORMULARY) IVPB ONE (13:33)
[2019-01-04 13:35] LABS: BASO % 0.1 % (0-2.0); EOS % 1.9 % (0-4.5); HEMATOCRIT 40.2 % (32.4-45.2); HEMOGLOBIN 13.9 GM/dL (10.7-15.3); LYMPH % 25.3 % (8-40); MCH 32.3 pg (25.7-33.7); MCHC 34.5 g/dl (32.0-36.0); MEAN CELL VOLUME 93.5 fl (80-96); MEAN PLT VOLUME 7.9 fl (7.5-11.1); MONO % 6.3 % (3.8-10.2); NEUT % 66.4 % (42.8-82.8); PLATELET COUNT 313 K/MM3 (134-434); RDW 13.8 % (11.6-15.6); WHITE BLOOD COUNT 10.3 K/mm3 (4.0-10.0)
[2019-01-04] MEDS ORDERED: ONDANSETRON 4 MG/2 ML VIAL ONE (13:49)
[2019-01-04] MEDS ORDERED: ACETAMINOPHEN INJECTION 100 ML IVPB ONE (13:49)
[2019-01-04 14:31] LABS: ALBUMIN 3.5 g/dl (3.4-5.0); ALK PHOS 48 U/L (45-117); ANION GAP 8 MMOL/L (8-16); BILIRUBIN,TOTAL 0.6 mg/dL (0.2-1); BLOOD UREA NITROGEN 7 mg/dL (7-18); CHLORIDE 105 mmol/L (98-107); CO2 23 mmol/L (21-32); CREATININE 0.4 mg/dL (0.55-1.3); GLUCOSE,RANDOM 74 mg/dL (74-106); LIPASE 130 U/L (73-393); MAGNESIUM 2.4 mg/dL (1.8-2.4); POTASSIUM 3.9 mmol/L (3.5-5.1); SGOT/AST 9 U/L (15-37); SGPT/ALT 22 U/L (13-61); SODIUM 136 mmol/L (136-145); TOT PROT 6.7 g/dl (6.4-8.2)
[2019-01-04] MEDS ORDERED: SODIUM CHLORIDE 1,000 ML IV STA (15:53)
--- NOTE | 2019-01-04 16:29 | PDOC ---
Attending Attestation - Resident Resident Name: Surendra Antonio - ED Attending Attestation I have performed the following: I have examined & evaluated the patient, The case was reviewed & discussed with the resident, I agree w/resident's findings & plan, Exceptions are as noted - HPI HPI: 01/04/19 18:18 The patient is a 23 year old female with a significant PMH of A1, currently 9 weeks who presents to the emergency department with nonremitting nausea and vomiting for the past 4 days. Patient states she has been experiencing at least 6 episodes of NBNB nausea and vomiting daily for the past 4 days. Patient is also complaining of associated lower central abdominal cramping. Patient denies any vaginal bleeding or discharge. The patient denies chest pain, shortness of breath, headache and dizziness. Denies fever, chills, diarrhea and constipation. Denies dysuria, frequency, urgency and hematuria. Allergies: NKA Past surgical history: None reported. Social history: No reported alcohol, drug or cigarette use. - Physicial Exam PE: 01/04/19 18:18 agree with resident exam - Medical Decision Making 01/04/19 18:19 23yo F currently 9 weeks presents to the ED with N/V and suprapubic abd pain. Vitals wnl (pt reports BP is often in 90s systolic). Exam with no abd ttp. Labs unremarkable. UA+ for UTI. TVUS reveals 1 viable intrauterine and 2 other gestational sacs in uterus, one with demise, and the other a blighted ovum. Case discussed with OB by Dr. Antonio, recommends outpt f/u at this time. Results and plan discussed with pt. Questions answered Pt treated for UTI with keflex. She is clinically well appearing Rpt BP 100/68. Pt tolerating PO. Will f/u with OB. Return precautions given.
[2019-01-04 17:30] LABS: URINE APPEARANCE SLCLOUDY; URINE BILIRUBIN NEGATIVE (<2.0 mg/dL); URINE COLOR YELLOW; URINE GLUCOSE (UA) NEGATIVE (NEGATIVE); URINE KETONE 1+ (NEGATIVE); URINE LEUK ESTERASE 1+ (NEGATIVE); URINE NITRITE NEGATIVE (NEGATIVE); URINE PROTEIN NEGATIVE (NEGATIVE); URINE UROBILINOGEN 4.0 E.U/dl mg/dL (0.2-1.0)
[2019-01-04 17:43] LABS: EPI CELLS FEW /HPF (FEW); URINE MUCUS MODERATE
[2019-01-04] MEDS ORDERED: CEPHALEXIN MONOHYDRATE 500 MG CAPSULE (UD) PO ONE (17:55)
[2019-01-04 18:57] VITALS: BP 104/78; PULSE 72; TEMP 98.5
== END 2019-01-04 17:45 | disposition home or self-care (01) ==
LOC: JER 10:19
PROC: 3E033NZ Introduction of Analgesics, Hypnotics, Sedatives into Peripheral Vein, Percutaneous Approach (ICD-10-PCS; principal; 2019-01-04)
PROC: 3E033GC Introduction of Other Therapeutic Substance into Peripheral Vein, Percutaneous Approach (ICD-10-PCS; 2019-01-04)
PROC: 3E0337Z Introduction of Electrolytic and Water Balance Substance into Peripheral Vein, Percutaneous Approach (ICD-10-PCS; 2019-01-04)
DX: O02.1 Missed abortion (principal); Z3A.09 9 weeks gestation of pregnancy; J45.909 Unspecified asthma, uncomplicated
CPT/HCPCS: 36415; 76810-TC; 80053; 81003; 81015; 83690; 83735; 84702; 85025; 86850; 86900; 86901; 87081; 87086; 99284-25; J0131; J7030

== ENCOUNTER 2019-01-13 23:24 | Emergency (ER) | payer SELFPAY ==
[2019-01-13 23:36] VITALS: BMI 18.3
[2019-01-14] MEDS ORDERED: DICYCLOMINE HCL 10 MG/5 ML PO ONE (01:24)
[2019-01-14] MEDS ORDERED: DICYCLOMINE HCL 10 MG CAPSULE PO ONE (01:24)
[2019-01-14] MEDS ORDERED: SODIUM CHLORIDE 1,000 ML IV STA (01:24)
[2019-01-14] MEDS ORDERED: PYRIDOXINE HCL (B-6) 100 MG TABLET PO ONE (01:27)
--- NOTE | 2019-01-14 01:42 | PDOC ---
History of Present Illness - General Chief Complaint: Nausea/Vomiting Stated Complaint: ELEVEN WKS /ABD PAIN Time Seen by Provider: 01/14/19 01:10 - History of Present Illness Initial Comments: 01/14/19 01:34 23 yo A1, LMP 10/24/18 at 11 wga who p/w lower abdominal pain, vomiting. Pt. 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 No identifiable triggers or alleviators. Also endorses 3 episodes of NBNB emesis today. Nml bowel habits and PO intake. Symptom not improved with oral pyridxoine. Recently evaluated at [facility] for hyperemsis, 6 episodes NBNB emesis daily ( 01/04/19). Recent TVUS [facility] (01/04/19) Single, live intrauterine of 9 weeks 4 days gestational age. There are 2 additional gestational sacs. One contains a suspected demise of 6 weeks 1 day gestational age and the other is suspicious for a blighted ovum. Patient denies BETTENCOURT, vision change, palpitations, cough, wheezing, orthopena, PND , leg swelling/pain, F,C, CP, SOB, vaginal bleeding, pelvic pain, urinary complaints, hematuria, BPR, diarrhea, constipation, lightheadedness, weakness, sensory changes. PMHx: as noted above ROS: as noted SHx: Denies Etoh, IVDA, Tobacco use Allergies: NKDA Past History - Past Medical History Allergies/Adverse Reactions: Allergies Allergy/AdvReac Type Severity Reaction Status Date / Time No Known Allergies Allergy Verified 01/13/19 23:36 Home Medications: Ambulatory Orders RX: Albuterol Sulfate Inhaler - [Ventolin HFA Inhaler -] 1 - 2 inh PO Q4H PRN # 1 inhaler 10/24/17 RX: Albuterol 0.083% Nebulizer Cristel [Ventolin 0.083% Nebulizer Soln -] 1 amp NEB Q4H PRN #1 amp 02/27/18 RX: Nebulizer and Compressor [[place] Choice Nebulizer] 1 each MC Q4H PRN #1 each 02/27/18 Salmeterol/Fluticasone [Advair 100Mcg/50Mcg -] 1 inh PO BID #1 diskus 02/27/18 predniSONE [Deltasone -] 5 mg PO ASDIR #32 tab 02/27/18 Doxylamine Succinate/Vit B6 [Aliya Barrera 10-10 mg Tablet] 1 each PO PRN #14 tablet. 12/15/18 Cephalexin Monohydrate [Keflex -] 500 mg PO Q6H #40 capsule 01/04/19 RX: Pyridoxine HCl (Vitamin B6) [Pyridoxine HCl] 25 mg PO TID PRN #20 tablet Cephalexin Monohydrate [Keflex -] 500 mg PO BID #10 capsule MDD 2 tab 01/14/19 Asthma: Yes COPD: No - Reproductive History (#): 2 Para: 0 Cervical CA: No Dysfunctional Uterine Bleeding: No Ectopic : No Endometrial CA: No Polycystic Ovaries: No Therapeutic (s) & number: Yes (1) Tubal Ligation: No Spontaneous : 1 - Immunization History Immunization Up to Date: Yes - Suicide/Smoking/Psychosocial Hx Smoking Status: No Smoking History: Never smoked Have you smoked in the past 12 months: No Number of Cigarettes Smoked Daily: 4 Cigars Per Day: 0 Information on smoking cessation initiated: No 'Breaking Loose' booklet given: 02/27/18 Hx Alcohol Use: No Drug/Substance Use Hx: No Substance Use Type: None Hx Substance Use Treatment: No Review of Systems - Review of Systems Comments:: 01/14/19 02:01 GENERAL/CONSTITUTIONAL: No fever or chills. No weakness. HEAD, EYES, EARS, NOSE AND THROAT: No change in vision. No ear pain or discharge. No sore throat. CARDIOVASCULAR: No chest pain or shortness of breath RESPIRATORY: No cough, wheezing, or hemoptysis. GASTROINTESTINAL: + Abdominal pain, nausea, vomiting. No diarrhea or constipation. GENITOURINARY: No dysuria, frequency, or change in urination. MUSCULOSKELETAL: No joint or muscle swelling or pain. No neck or back pain. SKIN: No rash NEUROLOGIC: No headache, vertigo, loss of consciousness, or change in strength/ sensation. ENDOCRINE: No increased thirst. No abnormal weight change HEMATOLOGIC/LYMPHATIC: No anemia, easy bleeding, or history of blood clots. ALLERGIC/IMMUNOLOGIC: No hives or skin allergy. *Physical Exam - Vital Signs Last Vital Signs Temp Pulse Resp BP Pulse Ox 98.2 F 80 16 88/55 L 100 01/13/19 23:33 01/13/19 23:33 01/13/19 23:33 01/13/19 23:33 01/13/19 23:33 - Physical Exam Comments: 01/14/19 04:39 GENERAL: Awake, alert, and fully oriented, in no acute distress HEAD: No signs of trauma, normocephalic, atraumatic EYES: PERRLA, EOMI, sclera anicteric, conjunctiva clear ENT:Hearing grossly normal, nares patent, oropharynx clear without exudates. Moist mucosa NECK: Normal ROM, supple, no lymphadenopathy, JVD, or masses LUNGS: No distress, speaks full sentences, clear to auscultation bilaterally HEART: Regular rate and rhythm, normal S1 and S2, no murmurs, rubs or gallops, peripheral pulses normal and equal bilaterally. ABDOMEN: Soft, nontender, normoactive bowel sounds. No guarding, no rebound. No masses GENITOURINARY: Nml appearing external genitalia, with absent lesions. Vaginal vault without blood, or discharge. Cervical os closed. Neg CMT on BM. Neg adenexal ttp, or mass palpated. EXTREMITIES : Normal inspection, Normal range of motion, no edema. No clubbing or cyanosis. NEUROLOGICAL: Cranial nerves II through XII grossly intact. Normal speech, normal gait, no focal sensorimotor deficits SKIN: Warm, Dry, normal turgor, no rashes or lesions noted Moderate Sedation - Procedure Monitoring Vital Signs: Procedure Monitoring Vital Signs Temperature 98.2 F 01/13/19 23:33 Pulse Rate 80 01/13/19 23:33 Respiratory Rate 16 01/13/19 23:33 Blood Pressure 88/55 L 01/13/19 23:33 O2 Sat by Pulse Oximetry (%) 100 01/13/19 23:33 ED Treatment Course - LABORATORY CBC & Chemistry Diagram: 01/14/19 02:33 01/14/19 02:33 - RADIOLOGY Radiology Studies Ordered: Category Date Time Status <14WKS US [US] Stat Ultrasound 01/14/19 01:23 Ordered 01/14/19 02:05 Patient Information: : 1995 Order Type: Preliminary Name: SONIA VIVAS Sex: F Study Description: US OBSTETRIC LIMITED Modality: US Location: [facility] Referring Physician: KWADWO HARTMAN Comments: Aftab Stephenson MD wrote on Jan 14, 2019 at 02:01 AM: Referring Physician: KWADWO HARTMAN Patient Name: SANGEETHA SCOTT THIS IS A PRELIMINARY REPORT FROM [facility] DATE OF SERVICE: 2019-01-14 01:30:29 IMAGES: 25 EXAM: <14WKS US . Grayscale, color flow Doppler images provided. HISTORY: 23-year-old female with lower abdominal pain. Recent demise. Twin gestation. COMPARISON: Transvaginal pelvic ultrasound 15 December thousand . Uterus measures 9.2 x 6.6 x 6.5 cm. Gestational sac containing twin A; yolk sac and pole identified. Rowlett- rump length measurement 10 weeks 6 days. cardiac activity 144 bpm. Twin B gestational sac with mean sac diameter 6 weeks 6 days. pole identified within the twin B sac with no cardiac activity present. Rowlett-rump length measurement 5 weeks 5 days. CONFIDENTIALITY NOTICE: This information is intended only for the use of the recipient(s) named above. If you are not the intended recipient, or a person responsible for delivering it to the intended recipient, you are hereby notified that any disclosure, copying, distribution or use of any of the information contained in or attached to this transmission is STRICTLY PROHIBITED. If you have received this transmission in error, please immediately notify [facility] and destroy the original transmission and its attachments without saving them in any manner [address] [place] [address] [place] [address] Phone: [phone] ([phone]) Fax: Email: [email or web address] Patient Information: : 1995 Order Type: Preliminary Name: SONIA VIVAS Sex: F Study Description: US OBSTETRIC LIMITED Modality: US Location: [facility] Referring Physician: KWADWO HARTMAN Twin C sac with mean sac diameter 5 weeks 5 days. No yolk sac or pole identified. Left ovary measures 2.6 x 1.7 x 1.9 cm. Color flow Doppler venous signal to the left ovary demonstrated. The right ovary measures 2.0 x 1.2 x 1.1 cm. Color flow and arterial Doppler/venous signal to the right ovary demonstrated. Impression: 1. Twin A gestational sac containing a single live intrauterine at 10 weeks 6 days ?1 week 0 days estimated gestational age. The ABAD based on ultrasound criteria August 06, 2019; clinical dating July 31, 2019. 2. 2 additional gestational sacs containing no viable pregnancies. 3. No evidence of ovarian torsion. THIS DOCUMENT HAS BEEN ELECTRONICALLY SIGNED Aftab Stephenson MD 01/14/2019 02:00 DONNA Pascal Please call [facility] [employer] [facility] [phone] ([phone]) with questions. 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 BP 88/55, vitals otherwise wnl, AF, A&Ox3. Denies BETTENCOURT, vision change, palpitations, cough, wheezing, orthopena, PND, leg swelling/pain, F,C, CP, SOB, urinary complaints, vaginal bleeding, pelvic pain, hematuria, BPR, diarrhea, constipation, lightheadedness, weakness, sensory changes. Will assess for viable IUP vs. related etiology of abdominal pain first rimester including threatened , ESTELLE. Will consider cystitis, ovarian pathology, appendicitis, nephrolithiasis. Will provide analgesia, antiemetic control IVF and reassess. Ed Course: Dicylocimine, Pyridoxine, NS TVUS PREG 01/14/19 02:01 01/14/19 02:05 TVUS: 1. Twin A gestational sac containing a single live intrauterine at 10 weeks 6 days ?1 week 0 days estimated gestational age. The ABAD based on ultrasound criteria August 06, 2019; clinical dating July 31, 2019. 2. 2 additional gestational sacs containing no viable pregnancies. 3. No evidence of ovarian torsion. 01/14/19 03:48 Laboratory Tests 01/14/19 01/14/19 01/14/19 02:33 02:33 02:33 WBC 14.0 H Hgb 12.7 Hct 35.7 BUN 7 Creatinine 0.4 L Beta HCG, Quant [id number] 01/14/19 04:40 Reglan 10 mg Laboratory Tests 01/14/19 03:46 Urine Color Yellow Urine Appearance Clear Urine Ketones Negative Urine Blood Negative Urine Nitrite Negative Ur Leukocyte Esterase 1+ Urine WBC (Auto) 31 Urine RBC (Auto) 1 Urine Bacteria (Auto) 48.42 Keflex sent to pharmacy Pt. stable for d/c with return precautions Advised to f/u with Medical Assistant Supervisor 01/14/19 06:04 Pt. tolerating PO intake *DC/Admit/Observation/Transfer Diagnosis at time of Disposition: Abdominal pain during in first trimester - Discharge Dispostion Condition at time of disposition: Stable - Prescriptions Prescriptions: Cephalexin Monohydrate [Keflex -] 500 mg PO BID #10 capsule MDD 2 tab - Referrals Referrals: Ever Jaeger MD [Staff Physician] - - Patient Instructions Printed Discharge Instructions: DI for Abdominal Pain -- Early Additional Instructions: Please return to the emergency department with any new or worsening symptoms or concerns. Please follow up with your primary care physician and/or Medical Assistant Supervisor physician within 72 hours. Please take Keflex two times a day for 5 days. - Post Discharge Activity
[2019-01-14] MEDS ORDERED: DICYCLOMINE HCL 10 MG CAPSULE ONE (02:20)
[2019-01-14 02:44] LABS: BASO % 0.5 % (0-2.0); EOS % 2.6 % (0-4.5); HEMATOCRIT 35.7 % (32.4-45.2); HEMOGLOBIN 12.7 GM/dL (10.7-15.3); LYMPH % 26.1 % (8-40); MCH 33.2 pg (25.7-33.7); MCHC 35.4 g/dl (32.0-36.0); MEAN CELL VOLUME 93.7 fl (80-96); MEAN PLT VOLUME 7.9 fl (7.5-11.1); MONO % 5.9 % (3.8-10.2); NEUT % 64.9 % (42.8-82.8); PLATELET COUNT 266 K/MM3 (134-434); RBC 3.82 M/mm3 (3.60-5.2); RDW 14.1 % (11.6-15.6)
[2019-01-14 03:13] LABS: ALBUMIN 3.2 g/dl (3.4-5.0); ALK PHOS 50 U/L (45-117); ANION GAP 6 MMOL/L (8-16); BILIRUBIN,TOTAL 0.3 mg/dL (0.2-1); BLOOD UREA NITROGEN 7 mg/dL (7-18); CALCIUM 8.8 mg/dL (8.5-10.1); CHLORIDE 107 mmol/L (98-107); CO2 23 mmol/L (21-32); CREATININE 0.4 mg/dL (0.55-1.3); GLUCOSE,RANDOM 82 mg/dL (74-106); POTASSIUM 3.9 mmol/L (3.5-5.1); SGOT/AST 6 U/L (15-37); SGPT/ALT 15 U/L (13-61); SODIUM 136 mmol/L (136-145); TOT PROT 6.4 g/dl (6.4-8.2)
--- NOTE | 2019-01-14 03:22 | PDOC ---
Attending Attestation - Resident Resident Name: Tom Lee - ED Attending Attestation I have performed the following: I have examined & evaluated the patient, The case was reviewed & discussed with the resident, I agree w/resident's findings & plan, Exceptions are as noted - HPI HPI: 01/14/19 03:45 23yo F A1 currently 11 weeks presents to the ED with lower abd pain since this evening. Also reports daily emesis, 3-4 times per day, non bloody Taking B6 at home without relief. Feels generalized weakness. US done here on revealed single, live IUP 9+4 weeks as well as 2 additional non viable gestational sacs. DEnies headache, focal weakness/numbness, cp, sob, LE edema, urinary sxs. - Physicial Exam PE: 01/14/19 03:52 agree with res exam - Medical Decision Making 01/14/19 03:52 23yo F currently 11 weeks presents to the ED with lower abd pain a/w daily N/V for weeks. Vitals with hypotension, pt appears dehydrated. TVUS obtained which shows single viable IUP again, now at 10+6 along with 2 non viable gestational sacs. Labs with leukocytosis as to be expected in , pt has no fevers or chills to suggest infections etiology UA pending After dicyclomine, B6, and a liter of fluids in the ED, pt ate doritos and " spit up" but did not vomit Will give reglan and D5NS and reassess 01/14/19 05:52 Pt tolerating PO Feels better, requests DC home Pt well appearing, to f.u with OB within 2-3 days I discussed the physical exam findings, ancillary test results and final diagnoses with the patient. I answered all of the patient's questions. The patient was satisfied with the care received and felt comfortable with the discharge plan and treatment plan. The patient will call their primary care physician within 24 hours to arrange follow-up and will return to the Emergency Department with any new, persistent or worsening symptoms.
[2019-01-14] MEDS ORDERED: DEXTROSE 5%-NORMAL SALINE 1,000 ML IV ONE (03:47)
[2019-01-14] MEDS ORDERED: METOCLOPRAMIDE HCL INJECTION 10 MG/2 ML VIAL IVPUSH ONE (03:50)
[2019-01-14] MEDS ORDERED: METOCLOPRAMIDE HCL INJECTION 10 MG/2 ML VIAL ONE (04:30)
[2019-01-14 05:14] LABS: URINE APPEARANCE CLEAR; URINE BACTERIA 48.42 /hpf (NEGATIVE); URINE BILIRUBIN NEGATIVE (<2.0 mg/dL); URINE COLOR YELLOW; URINE GLUCOSE (UA) NEGATIVE (NEGATIVE); URINE KETONE NEGATIVE (NEGATIVE); URINE LEUK ESTERASE 1+ (NEGATIVE); URINE NITRITE NEGATIVE (NEGATIVE); URINE PROTEIN NEGATIVE (NEGATIVE); URINE RBC 1 /hpf (0-4); URINE UROBILINOGEN 0.2 mg/dL (0.2-1.0); URINE WBC 31 /hpf (0-5)
[2019-01-14 06:23] VITALS: BP 106/62; PULSE 79; TEMP 98.6
[2019-01-14 07:01] LABS: HYALINE CASTS 21.08 /hpf (0-8)
== END 2019-01-14 06:23 | disposition home or self-care (01) ==
LOC: JER 23:24
PROC: 3E0337Z Introduction of Electrolytic and Water Balance Substance into Peripheral Vein, Percutaneous Approach (ICD-10-PCS; principal; 2019-01-13)
PROC: 3E0337Z Introduction of Electrolytic and Water Balance Substance into Peripheral Vein, Percutaneous Approach (ICD-10-PCS; 2019-01-13)
PROC: 3E033GC Introduction of Other Therapeutic Substance into Peripheral Vein, Percutaneous Approach (ICD-10-PCS; 2019-01-13)
DX: O26.891 Other specified pregnancy related conditions, first trimester (principal); R10.30 Lower abdominal pain, unspecified; O31.21X1 Continuing pregnancy after intrauterine death of one fetus or more, first trimester, fetus 1; O31.21X2 Continuing pregnancy after intrauterine death of one fetus or more, first trimester, fetus 2; Z3A.11 11 weeks gestation of pregnancy
CPT/HCPCS: 36415; 76801-TC; 80053; 81003; 84702; 85025; 86850; 86900; 86901; 87086; 99282-25; J7030

== ENCOUNTER 2019-01-27 03:02 | Emergency (ER) | payer OTHER ==
--- NOTE | 2019-01-27 03:15 | PDOC ---
Attending Attestation - Resident Resident Name: Jones Peterson - ED Attending Attestation I have performed the following: I have examined & evaluated the patient, The case was reviewed & discussed with the resident, I agree w/resident's findings & plan - HPI HPI: 01/27/19 06:56 Pt comes with vag bleed in . She is 11week gestation. She had a twin gestation, but she is losing on eof the twins. Today pt is afebrile and she appears well. No dysuria and no other complaints. 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 Pt has O+ blood type. No need for rhogam. Pt requires no sono at this time, as she had one recently, and it will not change our managament. Pt has a closed os. No need to call RUG DRYING MACHINE OPERATOR emergently.
[2019-01-27] MEDS ORDERED: ACETAMINOPHEN 325 MG TABLET (FP) PO ONE (03:22)
[2019-01-27] MEDS ORDERED: METOCLOPRAMIDE HCL 10 MG TABLET (FP) PO ONE ×2 (03:22→03:29)
[2019-01-27] MEDS ORDERED: ACETAMINOPHEN 325 MG TABLET (FP) ONE (03:29)
--- NOTE | 2019-01-27 03:35 | PDOC ---
History of Present Illness - General Chief Complaint: Vaginal Bleeding Stated Complaint: POSSIBLE MISCARRIAGE Time Seen by Provider: 01/27/19 03:04 History Source: Patient Exam Limitations: No Limitations - History of Present Illness Initial Comments: 01/27/19 03:30 Patient is at 12 weeks 23F with history of asthma coming in today concerned that she is miscarrying. Patient states that she had some lower abdominal cramping, vomiting and a small amount of spotting. Denies fevers, chills. Denies passing tissue. Patient has had three ultrasounds in this ED for this . Initially, patient was with twins. The past two ultrasounds, last two weeks ago, showed demise of one of the twins. Patient reports she had an ultrasound two days ago as an outpatient that was normal. Past History - Past Medical History Allergies/Adverse Reactions: Allergies Allergy/AdvReac Type Severity Reaction Status Date / Time No Known Allergies Allergy Verified 01/13/19 23:36 Home Medications: Ambulatory Orders Albuterol Sulfate Inhaler - [Ventolin HFA Inhaler -] 1 - 2 inh PO Q4H PRN #1 inhaler 10/24/17 Albuterol 0.083% Nebulizer Cristel [Ventolin 0.083% Nebulizer Soln -] 1 amp NEB Q4H PRN #1 amp 02/27/18 Nebulizer and Compressor [[place] Choice Nebulizer] 1 each MC Q4H PRN #1 each 06/09 Salmeterol/Fluticasone [Advair 100Mcg/50Mcg -] 1 inh PO BID #1 diskus 02/27/18 predniSONE [Deltasone -] 5 mg PO ASDIR #32 tab 02/27/18 Doxylamine Succinate/Vit B6 [Aliya Barrera 10-10 mg Tablet] 1 each PO PRN #14 tablet. 12/15/18 Cephalexin Monohydrate [Keflex -] 500 mg PO Q6H #40 capsule 01/04/19 Pyridoxine HCl (Vitamin B6) [Pyridoxine HCl] 25 mg PO TID PRN #20 tablet Cephalexin Monohydrate [Keflex -] 500 mg PO BID #10 capsule MDD 2 tab 01/14/19 Asthma: Yes COPD: No - Reproductive History Is Patient Now?: Yes (#): 3 Para: 0 Cervical CA: No Dysfunctional Uterine Bleeding: No Ectopic : No Endometrial CA: No Polycystic Ovaries: No Therapeutic (s) & number: Yes Tubal Ligation: No Spontaneous : 1 - Immunization History Immunization Up to Date: Yes - Suicide/Smoking/Psychosocial Hx Smoking Status: No Smoking History: Never smoked Have you smoked in the past 12 months: No Number of Cigarettes Smoked Daily: 4 Cigars Per Day: 0 'Breaking Loose' booklet given: 02/27/18 Hx Alcohol Use: No Drug/Substance Use Hx: No Substance Use Type: None Hx Substance Use Treatment: No Review of Systems - Review of Systems Able to Perform ROS?: Yes Comments:: 01/27/19 03:33 GENERAL/CONSTITUTIONAL: No fever or chills. No weakness. HEAD, EYES, EARS, NOSE AND THROAT: No change in vision. No ear pain or discharge. No sore throat. CARDIOVASCULAR: No chest pain or shortness of breath RESPIRATORY: No cough, wheezing, or hemoptysis. GASTROINTESTINAL: No nausea, vomiting, diarrhea or constipation. GENITOURINARY: No dysuria, frequency, or change in urination. MUSCULOSKELETAL: No joint or muscle swelling or pain. No neck or back pain. SKIN: No rash NEUROLOGIC: No headache, vertigo, loss of consciousness, or change in strength/ sensation. HEMATOLOGIC/LYMPHATIC: No anemia, easy bleeding, or history of blood clots. ALLERGIC/IMMUNOLOGIC: No hives or skin allergy. *Physical Exam - Vital Signs Last Vital Signs Temp Pulse Resp BP Pulse Ox 98.2 F 83 19 120/47 L 98 01/27/19 03:03 01/27/19 03:03 01/27/19 03:03 01/27/19 03:03 01/27/19 03:03 - Physical Exam Comments: 01/27/19 03:34 GENERAL: Awake, alert, and fully oriented, in no acute distress PELVIC: Normal external genitalia, no cmt, no adnexal masses or tenderness, no blood on exam, closed os HEAD: No signs of trauma, normocephalic, atraumatic EYES: PERRLA, EOMI, sclera anicteric, conjunctiva clear ENT: Auricles normal inspection, hearing grossly normal, nares patent, oropharynx clear without exudates. Moist mucosa NECK: Normal ROM, supple, no lymphadenopathy, JVD, or masses LUNGS: No distress, speaks full sentences, clear to auscultation bilaterally HEART: Regular rate and rhythm, normal S1 and S2, no murmurs, rubs or gallops, peripheral pulses normal and equal bilaterally. ABDOMEN: Soft, nontender, normoactive bowel sounds. No guarding, no rebound. No masses EXTREMITIES: Normal inspection, Normal range of motion, no edema. No clubbing or cyanosis. NEUROLOGICAL: Cranial nerves II through XII grossly intact. Normal speech, normal gait, no focal sensorimotor deficits SKIN: Warm, Dry, normal turgor, no rashes or lesions noted. ED Treatment Course - LABORATORY CBC & Chemistry Diagram: 01/27/19 03:51 01/27/19 03:51 Medical Decision Making - Medical Decision Making 01/27/19 03:34 Patient is 23F here today with threatened ab. Vitals normal and stable. No concern for hemorrhage, blood type o+ last three visits. Will draw labs as baseline for outpatient follow up. Will give patient return precautions. Case discussed with Dr Rodriguez. Will give reglan for nausea, tylenol for cramping. 01/27/19 06:31 CBC normal for . CMP normal. Beta quant as expected. *DC/Admit/Observation/Transfer Diagnosis at time of Disposition: Threatened - Discharge Dispostion Disposition: HOME Condition at time of disposition: Good Decision to Admit order: No - Referrals - Patient Instructions Printed Discharge Instructions: DI for Threatened Additional Instructions: Please follow up with your OBGYN on Monday. Please return if you have any new, worsening or concerning symptoms, especially increasing pain, vaginal bleeding and fever. - Post Discharge Activity
[2019-01-27 03:38] VITALS: BP 120/47; PULSE 83; TEMP 98.2; BMI 18.6
[2019-01-27 04:09] LABS: HEMATOCRIT 38.1 % (32.4-45.2); MCH 31.9 pg (25.7-33.7); MEAN CELL VOLUME 93.8 fl (80-96); MEAN PLT VOLUME 7.6 fl (7.5-11.1); PLATELET COUNT 270 K/MM3 (134-434); RBC 4.07 M/mm3 (3.60-5.2); RDW 14.4 % (11.6-15.6); WHITE BLOOD COUNT 12.3 K/mm3 (4.0-10.0)
[2019-01-27 05:22] LABS: ALBUMIN 3.3 g/dl (3.4-5.0); ALK PHOS 59 U/L (45-117); ANION GAP 9 MMOL/L (8-16); BILIRUBIN,TOTAL 0.3 mg/dL (0.2-1); BLOOD UREA NITROGEN 7 mg/dL (7-18); CALCIUM 8.5 mg/dL (8.5-10.1); CHLORIDE 105 mmol/L (98-107); CO2 23 mmol/L (21-32); CREATININE 0.5 mg/dL (0.55-1.3); GLUCOSE,RANDOM 82 mg/dL (74-106); POTASSIUM 4.2 mmol/L (3.5-5.1); SGOT/AST 15 U/L (15-37); SGPT/ALT 14 U/L (13-61); SODIUM 138 mmol/L (136-145); TOT PROT 6.8 g/dl (6.4-8.2)
== END 2019-01-27 04:19 | disposition home or self-care (01) ==
LOC: JER 03:02
DX: O26.891 Other specified pregnancy related conditions, first trimester (principal); O20.0 Threatened abortion; Z3A.12 12 weeks gestation of pregnancy
CPT/HCPCS: 36415; 80053; 84702; 85027; 99282-25

== ENCOUNTER 2019-02-12 18:13 | Emergency (ER) | payer OTHER ==
--- NOTE | 2019-02-12 18:44 | PDOC ---
Rapid Medical Evaluation Chief Complaint: Sore Throat Time Seen by Provider: 02/12/19 18:39 Medical Evaluation: Allergies Allergy/AdvReac Type Severity Reaction Status Date / Time No Known Allergies Allergy Verified 01/13/19 23:36 02/12/19 18:39 I did a brief in person evaluation on this patient. CC: Sore throat HPI: Pt complains of a sore throat x 1 day with fever. Pt is . PE: Skin: Clear Lungs: Clear Heart:RRR MS: Moves all extremities without difficulty Neuro: alert Psych: appropriate affect. I have ordered: RBS and flu Pt will proceed to [facility] for further evaluation. Discharge Disposition - Diagnosis Viral illness - Referrals - Patient Instructions - Post Discharge Activity
[2019-02-12 18:45] VITALS: BP 106/57; PULSE 96; TEMP 98.1; BMI 18.3
[2019-02-12] MEDS ORDERED: ACETAMINOPHEN 500 MG TABLET (FP) PO ONE (19:42)
--- NOTE | 2019-02-12 19:42 | PDOC ---
History of Present Illness - General Chief Complaint: Sore Throat Stated Complaint: NAUSEA/14 WKS Time Seen by Provider: 02/12/19 18:39 - History of Present Illness Initial Comments: 02/12/19 19:42 23 y/o 14 week gravid F with flue like symptoms x1 d Past History - Past Medical History Allergies/Adverse Reactions: Allergies Allergy/AdvReac Type Severity Reaction Status Date / Time No Known Allergies Allergy Verified 01/13/19 23:36 Home Medications: Ambulatory Orders NK [No Known Home Medication] 02/12/19 Asthma: Yes COPD: No - Reproductive History (#): 2 Para: 0 Cervical CA: No Dysfunctional Uterine Bleeding: No Ectopic : No Endometrial CA: No Polycystic Ovaries: No Therapeutic (s) & number: Yes (1) Tubal Ligation: No Spontaneous : 1 - Immunization History Immunization Up to Date: Yes - Suicide/Smoking/Psychosocial Hx Smoking Status: No Smoking History: Never smoked Have you smoked in the past 12 months: No Number of Cigarettes Smoked Daily: 4 Cigars Per Day: 0 Information on smoking cessation initiated: No 'Breaking Loose' booklet given: 02/27/18 Hx Alcohol Use: No Drug/Substance Use Hx: No Substance Use Type: None Hx Substance Use Treatment: No Review of Systems - Review of Systems Constitutional: Yes: Chills, Diaphoresis, Malaise, Night Sweats. No: Fever HEENTM: Yes: Throat Pain Respiratory: Yes: Cough *Physical Exam - Vital Signs Last Vital Signs Temp Pulse Resp BP Pulse Ox 98.1 F 96 H 18 106/57 L 97 02/12/19 18:40 02/12/19 18:40 02/12/19 18:40 02/12/19 18:40 02/12/19 18:40 - Physical Exam Comments: 02/12/19 19:42 HEAD: NC/AT EYES: Conjuntiva clear Ears: Canals and TM's normal NOSE: No d/c THROAT: Moist mucous membrances, oral pharanx clear, uvula midline NECK: Supple without adenopathy CARDIAC: S1 S2 LUNGS: CTA Full and Equal breath sounds ABDOMEN: Soft NT ND MS: Full ROM in all joints without edema NEUROLOGIC: No gross sensory or motor deficits, NVID SKIN: Normal color and temperature no lesions or rashes Medical Decision Making - Medical Decision Making 02/12/19 20:01 Bicillin for strep after treatment options discussed. *DC/Admit/Observation/Transfer Diagnosis at time of Disposition: Strep pharyngitis Diagnosis at time of Disposition: (Ruled Out): Viral illness - Discharge Dispostion Disposition: HOME Condition at time of disposition: Stable Decision to Admit order: No - Referrals Referrals: Thea Hinojosa [Primary Care Provider] - - Patient Instructions Printed Discharge Instructions: Strep Throat, DI for Strep Throat Additional Instructions: Return to the emergency room for worsening symptoms. Follow-up with your primary care physician in one to 2 days for further evaluation and treatment options. Tylenol as directed for pain. No other medications because of your . He was treated with a one-time injection of penicillin he did not require further antibiotic treatment. - Post Discharge Activity
[2019-02-12] MEDS ORDERED: ACETAMINOPHEN 500 MG TABLET (FP) ONE (19:44)
[2019-02-12] MEDS ORDERED: PENICILLIN G BENZATHINE 1,200,000 UNIT/2 ML PFS IM ONE (20:01)
[2019-02-12] MEDS ORDERED: PENICILLIN G BENZATHINE 2,400,000 UNIT/4 ML PFS ONE (20:06)
== END 2019-02-12 20:17 | disposition home or self-care (01) ==
LOC: JERFT 18:13
DX: O26.892 Other specified pregnancy related conditions, second trimester (principal); O98.812 Other maternal infectious and parasitic diseases complicating pregnancy, second trimester; J02.0 Streptococcal pharyngitis; B95.0 Streptococcus, group A, as the cause of diseases classified elsewhere; Z3A.14 14 weeks gestation of pregnancy
CPT/HCPCS: 87804; 87880; 96372; 99281-25

== ENCOUNTER 2019-05-15 02:33 | Emergency (ER) | payer OTHER ==
[2019-05-15 03:08] VITALS: BMI 20.5
--- NOTE | 2019-05-15 04:20 | PDOC ---
*Physical Exam - Vital Signs Last Vital Signs Temp Pulse Resp BP Pulse Ox 98.1 F 97 H 17 100/52 L 98 05/15/19 02:33 05/15/19 02:33 05/15/19 02:33 05/15/19 02:33 05/15/19 02:33 Medical Decision Making - Medical Decision Making 05/15/19 04:19 Patient seen by the advanced practice provider under my direct supervision. Ancillary testing reviewed as necessary. I agree with plan as outlined by the advanced practice provider. *DC/Admit/Observation/Transfer Diagnosis at time of Disposition: Hemorrhoid Qualifiers: Hemorrhoid type: unspecified Qualified Code(s): K64.9 - Unspecified hemorrhoids - Discharge Dispostion Disposition: HOME Condition at time of disposition: Fair - Prescriptions Prescriptions: Witch Rhoda 50% (Tucks) [Tucks Witch Rhoda Pads] 1 pad TP DAILY PRN #1 packet PRN Reason: Hemorrhoids - Referrals Referrals: Kaveh Fernando MD [Staff Physician] - Thea Hinojosa [Primary Care Provider] - - Patient Instructions Printed Discharge Instructions: Hemorrhoids (Alternative Therapy) Additional Instructions: drink plenty of fluids eat high fiber diet use tucks pad as prescribed follow up with your doctor as soon as possible. Additional Instructions: * Please call your personal physician to report your Emergency Department visit and to report your progress, if any. * If there is no improvement in symptoms in 2 days call your physician. * Return to the Emergency Department for any worsening symptoms. - Post Discharge Activity Forms/Work/School Notes: Back to Work
--- NOTE | 2019-05-15 05:05 | PDOC ---
History of Present Illness - General Chief Complaint: Abscess Boil Stated Complaint: ABSCESS, RECTUM Time Seen by Provider: 05/15/19 04:04 History Source: Patient - History of Present Illness Initial Comments: 05/15/19 05:00 23 year old female 27 weeks female c/o hemorrhoids worse after bowel movements. patient reports that she has been having hard stool and has been straining. Past History - Past Medical History Allergies/Adverse Reactions: Allergies Allergy/AdvReac Type Severity Reaction Status Date / Time No Known Allergies Allergy Verified 05/15/19 03:08 Home Medications: Ambulatory Orders Witch Rhoda 50% (Tucks) [Tucks Witch Rhoda Pads] 1 pad TP DAILY PRN #1 packet Asthma: Yes COPD: No - Reproductive History (#): 2 Para: 0 Cervical CA: No Dysfunctional Uterine Bleeding: No Ectopic : No Endometrial CA: No Polycystic Ovaries: No Therapeutic (s) & number: Yes (1) Tubal Ligation: No Spontaneous : 1 - Immunization History Immunization Up to Date: Yes - Suicide/Smoking/Psychosocial Hx Smoking Status: No Smoking History: Never smoked Have you smoked in the past 12 months: No Number of Cigarettes Smoked Daily: 4 Cigars Per Day: 0 'Breaking Loose' booklet given: 02/27/18 Hx Alcohol Use: No Drug/Substance Use Hx: No Substance Use Type: None Hx Substance Use Treatment: No Review of Systems - Review of Systems Able to Perform ROS?: Yes Is the patient limited Korean proficient: No Constitutional: Yes: Loss of Appetite ABD/GI: Yes: Constipated. No: Symptoms Reported, See HPI, Abdominal Distended, Abd. Pain w/ defecation, Blood Streaked Bowels, Diarrhea, Difficulty Swallowing , Nausea, Poor Appetite, Poor Fluid Intake, Rectal Bleeding, Vomiting, Indigestion, Abdominal cramping, Tarry Stools, Other *Physical Exam - Vital Signs Last Vital Signs Temp Pulse Resp BP Pulse Ox 98.1 F 97 H 17 100/52 L 98 05/15/19 02:33 05/15/19 02:33 05/15/19 02:33 05/15/19 02:33 05/15/19 02:33 - Physical Exam General Appearance: Yes: Appropriately Dressed Female Pelvic Exam: positive: normal external exam Rectal Exam: positive: normal rectal tone, hemorrhoids (+ external non inflamed hemorrhoid) Extremity: positive: Normal Capillary Refill, Normal Inspection, Normal Range of Motion Progress Note - Progress Note Progress Note: A: hemorrhoids P: tucks pads *DC/Admit/Observation/Transfer Diagnosis at time of Disposition: Hemorrhoid Qualifiers: Hemorrhoid type: unspecified Qualified Code(s): K64.9 - Unspecified hemorrhoids - Discharge Dispostion Disposition: HOME Condition at time of disposition: Fair - Referrals Referrals: Thea Hinojosa [Primary Care Provider] - - Patient Instructions Printed Discharge Instructions: Hemorrhoids (Alternative Therapy) Additional Instructions: drink plenty of fluids eat high fiber diet use tucks pad as prescribed follow up with your doctor as soon as possible. Additional Instructions: * Please call your personal physician to report your Emergency Department visit and to report your progress, if any. * If there is no improvement in symptoms in 2 days call your physician. * Return to the Emergency Department for any worsening symptoms. - Post Discharge Activity Forms/Work/School Notes: Back to Work
[2019-05-15 06:19] VITALS: BP 113/69; PULSE 84; TEMP 98.3
== END 2019-05-15 06:10 | disposition home or self-care (01) ==
LOC: JER 02:33
DX: O26.892 Other specified pregnancy related conditions, second trimester (principal); Z3A.27 27 weeks gestation of pregnancy; K64.9 Unspecified hemorrhoids
CPT/HCPCS: 99281-25

== ENCOUNTER 2019-05-24 04:51 | Emergency (ER) | payer OTHER ==
[2019-05-24 05:17] VITALS: BP 105/67; PULSE 85; TEMP 99.5; BMI 20.5
--- NOTE | 2019-05-24 05:45 | PDOC ---
History of Present Illness - General Chief Complaint: Sore Throat Stated Complaint: 29 WEEKS ,THROAT PAIN,CHEST TIGHTNESS Time Seen by Provider: 05/24/19 05:44 - History of Present Illness Initial Comments: 23 year old 29 week (by US) female with PMH of asthma presenting with cough and sore throat for the past two days after coming into contact with her sick cousin who has been sick for the past four days. States that she has had a mild sore throat, nasal congestion, and cough with some mild chest tightness. No nausea, vomiting, diarrhea, fevers, chills, or other symptoms. She follows with an OBGYN for her care and has been compliant with her instructions and appointments. Past History - Past Medical History Allergies/Adverse Reactions: Allergies Allergy/AdvReac Type Severity Reaction Status Date / Time No Known Allergies Allergy Verified 05/24/19 05:15 Home Medications: Ambulatory Orders Witch Rhoda 50% (Tucks) [Tucks Witch Rhoda Pads] 1 pad TP DAILY PRN #1 packet Asthma: Yes COPD: No - Reproductive History (#): 2 Para: 0 Cervical CA: No Dysfunctional Uterine Bleeding: No Ectopic : No Endometrial CA: No Polycystic Ovaries: No Therapeutic (s) & number: Yes (1) Tubal Ligation: No Spontaneous : 1 - Immunization History Immunization Up to Date: Yes - Suicide/Smoking/Psychosocial Hx Smoking Status: No Smoking History: Never smoked Have you smoked in the past 12 months: No Number of Cigarettes Smoked Daily: 4 Cigars Per Day: 0 Information on smoking cessation initiated: No 'Breaking Loose' booklet given: 02/27/18 Hx Alcohol Use: No Drug/Substance Use Hx: No Substance Use Type: None Hx Substance Use Treatment: No Review of Systems - Review of Systems Constitutional: No: Chills, Diaphoresis, Fever HEENTM: No: Eye Pain, Blurred Vision, Tearing Respiratory: Yes: Cough. No: Shortness of Breath, SOB at Rest, Wheezing, Productive cough Cardiac (ROS): Yes: Chest Tightness. No: Chest Pain, Edema, Irregular Heart Rate, Lightheadedness, Palpitations, Syncope ABD/GI: No: Diarrhea, Nausea, Vomiting : No: Burning, Dysuria, Discharge Musculoskeletal: No: Back Pain, Joint Pain, Neck Pain Integumentary: No: Lesions, Lumps, Pallor Neurological: No: Numbness, Paresthesia, Tremors, Weakness Psychiatric: No: Anxiety, Depression Hematologic/Lymphatic: No: Anemia, Blood Clots, Easy Bleeding *Physical Exam - Vital Signs Last Vital Signs Temp Pulse Resp BP Pulse Ox 99.5 F 85 18 105/67 97 05/24/19 05:15 05/24/19 05:15 05/24/19 05:15 05/24/19 05:15 05/24/19 05:15 - Physical Exam General Appearance: Yes: Nourished, Appropriately Dressed. No: Apparent Distress HEENT: positive: EOMI, ANIYAH, Normal Voice, Pharyngeal Erythema, Nasal Congestion. negative: Normal ENT Inspection, Tonsillar Exudate, Tonsillar Erythema, Rhinorrhea Neck: positive: Trachea midline, Normal Thyroid, Supple. negative: Tender, Rigid Respiratory/Chest: positive: Lungs Clear, Normal Breath Sounds. negative: Chest Tender, Respiratory Distress, Accessory Muscle Use Cardiovascular: positive: Regular Rhythm, Regular Rate Gastrointestinal/Abdominal: positive: Normal Bowel Sounds, Protuberent, Other ( gravid). negative: Tender Lymphatic: negative: Adenopathy, Tenderness Musculoskeletal: positive: Normal Inspection. negative: Decreased Range of Motion Extremity: positive: Normal Capillary Refill, Normal Inspection, Normal Range of Motion. negative: Tender Integumentary: positive: Normal Color, Dry, Warm Neurologic: positive: Fully Oriented, Alert, Normal Mood/Affect, Normal Response , Motor Strength 5/5 Medical Decision Making - Medical Decision Making 23 year old female with cough and chest tightness for the past day. Lungs clear and pharyngeal exam not demonstrating swelling or exudates. VSS and patient overall well appearing. EKG demonstrating rate 60, OR 124, qrs 88, qtc 402, normal axis, and no sign of ischemia. Will DC to L&D floor after tylenol administration. 05/24/19 06:12 *DC/Admit/Observation/Transfer Diagnosis at time of Disposition: Cough, Sore throat - Discharge Dispostion Disposition: HOME Condition at time of disposition: Improved Decision to Admit order: No - Referrals Referrals: Ana Guzman CNM [Certified Nurse Special Investigation Unit Investigator] - - Patient Instructions Printed Discharge Instructions: DI for Cough -- Adult Additional Instructions: Please use lozenges for your sore throat as needed. Please use Tylenol for your symptoms as well every 6 hours as needed. Please follow up with your OB at your scheduled appointment. Please return to the ED if you have new or worsening symptoms. - Post Discharge Activity
[2019-05-24] MEDS ORDERED: ACETAMINOPHEN 500 MG TABLET (FP) PO ONE (06:02)
--- NOTE | 2019-05-24 06:09 | PDOC ---
Attending Attestation - Resident Resident Name: Lori Harmon - ED Attending Attestation I have performed the following: I have examined & evaluated the patient, The case was reviewed & discussed with the resident, I agree w/resident's findings & plan, Exceptions are as noted - HPI HPI: 05/24/19 06:10 23F here with 1 day of URI symptoms +sick contact, cousin who is also being seen for same symptoms
[2019-05-24] MEDS ORDERED: ACETAMINOPHEN 325 MG TABLET (FP) ONE (06:13)
--- NOTE | 2019-05-24 14:03 | EKG ---
Test Reason : Blood Pressure : / mmHG Vent. Rate : 060 BPM Atrial Rate : 060 BPM P-R Int : 124 ms QRS Dur : 088 ms QT Int : 402 ms P-R-T Axes : 074 064 045 degrees QTc Int : 402 ms NORMAL SINUS RHYTHM MINIMAL VOLTAGE CRITERIA FOR LVH, MAY BE NORMAL VARIANT Confirmed by ERASMO MEI MD ([id number]) on 05/24/2019 2:03:25 PM Referred By: Confirmed By:ERASMO MEI MD
== END 2019-05-24 08:25 | disposition home or self-care (01) ==
LOC: JER 04:51
DX: O99.89 Other specified diseases and conditions complicating pregnancy, childbirth and the puerperium (principal); J06.9 Acute upper respiratory infection, unspecified; Z3A.29 29 weeks gestation of pregnancy
CPT/HCPCS: 93005; 93010; 99281-25

== ENCOUNTER 2019-07-10 19:22 | Inpatient (IN) | payer OTHER ==
[2019-07-10] MEDS ORDERED: AMPICILLIN - 2 GM in SODIUM CHLORIDE 100 ML IVPB ONE (20:44)
[2019-07-10] MEDS ORDERED: DEXTROSE 5%-LACTATED RINGERS 1,000 ML IV SCH (20:45)
--- NOTE | 2019-07-10 20:52 | HP ---
Past Medical History - Admission Chief Complaint: SROM History of Present Illness: 24yo @ 36+ wks by jerri here with SROM at 7pm. No VB. Irreg mild ctx. 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, Varicella and Rubella Non Immune History Source: Patient Limitations to Obtaining History: No Limitations - Past Medical History COMMUNITY DEVELOPMENT DIRECTOR: No: Alzheimer's, CVA, Dementia, Migraine, Multiple Sclerosis, Peripheral Neuropathy, Parkinson's, Seizure, Syncope, TIA, Vertigo, Other Cardiovascular: No: AFIB, Aneurysm, Aortic Insufficiency, Aortic Stenosis, CAD, CHF, Deep Vein Thrombosis, HTN, Hyperlipdemia, SD, Mitral Insufficiency, Mitral Stenosis, Murmur, Pulmonary Hypertension, Other Pulmonary: Yes: Asthma Gastrointestinal: No: Ascites, Cancer, Constipation, Crohn's Disease, Diverticulitis, Diverticulosis, Esophageal Varices, Gastritis, GERD, GI Bleed, Hemorrhoids, Hiatal Hernia, Inflamatory Bowel Disease, Irritable Bowel Disease, Pancreatitis, Peptic Ulcer Disease, Ulcerative Colitis, Other Hepatobiliary: No: Cirrhosis, Cholelithiasis, Cholecystitis, Choledocholithiasis , Hepatitis A, Hepatitis B, Hepatitis C, Other Renal/: No: Renal Failure, Renal Inusuff, BPH, Cancer, Hematuria, Hemodialysis , Neurogenic Bladder, Renal Calculi, UTI, Other Reproductive: No: Ectopic , Endometriosis, Fibroids, PID, Polycystic Ovary Syndrome, Postmenopausal, Other ...: 1 ...Para: 0 Heme/Onc: Yes: Anemia Infectious Disease: No: AIDS, C-Diff, Herpes Zoster, HIV, MRSA, STD's, Tuberculosis, VREF, Other Psych: No: Addictions, Anxiety, Bipolar, Depression, Panic, Psychosis, Schizophrenia, Other - Past Surgical History Past Surgical History: Yes: None Hx Myomectomy: No Hx Transabdominal Cerclage: No - Smoking History Smoking history: Never smoked Have you smoked in the past 12 months: No Aproximately how many cigarettes per day: 4 - Alcohol/Substance Use Hx Alcohol Use: No Home Medications - Allergies Allergies/Adverse Reactions: Allergies Allergy/AdvReac Type Severity Reaction Status Date / Time pineapple Allergy Severe Swelling Verified 07/10/19 20:38 black pepper Allergy Intermediate Hives Verified 07/10/19 20:38 - Home Medications Home Medications: Ambulatory Orders Albuterol Sulfate Inhaler - [Ventolin Hfa Inhaler -] 1 - 2 inh PO Q4H PRN Vitamins (Sjr) - 1 tab PO DAILY 07/10/19 Physical Exam - Maternity - Abdominal Exam/OB Number of Fetuses: Single Presentation: Vertex Contractions: Yes Regularity: Irregular Intensity: Unaware Monitor Mode: External Heart Rate Location: [facility] Category: I Accelerations: Non-Uniform Decelerations: None - Vaginal Exam/OB Vaginal Bleediing: No Dilatation (cm): 1 Effacement (%): 0 Amniotic Membrane Status: Ruptured Nitrazine Test: Positive Amniotic Fluid: Yes: Clear Meconium: Light Presentation: Vertex/Position Station: -3 Assessment/Plan 24yo @ 36wks here with PPROM Admit to L&D Amp for GBS unknown ppx Mild elevated pressures, PIH labs ordered- normal labs aside from 3+ protein, likely PEC without severe features. Start pitocin if needed when GBS PPX sufficient Stadol/epidural prn Cat I tracing Anticipate DORIE Sprague
[2019-07-10] MEDS ORDERED: OXYTOCIN 30 UNITS in 0.9% NS 30 UNIT/500 ML INFUS.BAG IVPB SCH (21:00)
[2019-07-10 21:17] LABS: EPI CELLS 25.7 /HPF (0-5/HPF); HYALINE CASTS 167 /lpf (0-8); PH,URINE 5.5 (5.0-8.0); URINE APPEARANCE CLOUDY; URINE BACTERIA 13.9 /hpf (NEGATIVE); URINE BILIRUBIN 1+ (NEGATIVE); URINE COLOR DK YELLOW; URINE GLUCOSE (UA) NEGATIVE (NEGATIVE); URINE KETONE TRACE (NEGATIVE); URINE LEUK ESTERASE 1+ (NEGATIVE); URINE NITRITE NEGATIVE (NEGATIVE); URINE PROTEIN 3+ (NEGATIVE); URINE RBC 110 /hpf (0-4); URINE WBC 42 /hpf (0-5)
[2019-07-10 21:18] VITALS: BMI 23.9
[2019-07-10 21:47] LABS: BASO % 0.4 % (0-2.0); EOS % 1.3 % (0-4.5); HEMATOCRIT 31.5 % (32.4-45.2); HEMOGLOBIN 10.8 GM/dL (10.7-15.3); LYMPH % 18.5 % (8-40); MCH 31.6 pg (25.7-33.7); MCHC 34.2 g/dl (32.0-36.0); MEAN CELL VOLUME 92.4 fl (80-96); MONO % 6.2 % (3.8-10.2); NEUT % 73.6 % (42.8-82.8); PLATELET COUNT 201 K/MM3 (134-434); RBC 3.41 M/mm3 (3.60-5.2); RDW 13.6 % (11.6-15.6); WHITE BLOOD COUNT 11.2 K/mm3 (4.0-10.0)
[2019-07-10 21:48] LABS: RETICULOCYTES 2.27 % (0.5-1.5)
[2019-07-10 22:01] LABS: INR 0.88 (0.83-1.09); PROTHROMBIN TIME (PATIENT) 10.4 SEC (9.7-13.0)
[2019-07-10 22:03] LABS: ACTIVATED PTT 32.4 SECONDS (25.2-36.5)
[2019-07-10 22:13] LABS: CALCIUM 8.1 mg/dL (8.5-10.1); CREATININE 0.6 mg/dL (0.55-1.3); POTASSIUM 3.5 mmol/L (3.5-5.1); URIC ACID 4.1 mg/dL (2.6-7.2)
[2019-07-10 22:26] LABS: COCAINE, UR NEGATIVE ng/ml (CUTOFF=300); METHADONE, UR NEGATIVE ng/ml (CUTOFF=300); OPIATES, URI NEGATIVE ng/ml (CUTOFF=300); PHENCYCLIDINE,URINE NEGATIVE ng/ml (CUTOFF=25); URINE AMPHETAMINES NEGATIVE ng/ml (CUTOFF=500); URINE BARBITURATES NEGATIVE ng/ml (CUTOFF=200); URINE BENZODIAZEPINES NEGATIVE ng/ml (CUTOFF=200)
[2019-07-10 23:03] LABS: YEAST NONE SEEN (NEGATIVE)
[2019-07-10] MEDS ORDERED: OXYTOCIN 20 UNITS in 0.9% NS 20 UNIT/1,000 ML INFUS.BAG IV ONE (23:44)
[2019-07-10] MEDS ORDERED: LIDOCAINE HCL 1% PRESERVATIVE FREE - 30ML VIAL ONE (23:44)
--- NOTE | 2019-07-11 00:04 | PN ---
Progress Note, Labor Vaginal Exam #1 Labor Exam Date: 07/11/19 Labor Exam Time: 21:45 Heart Rate (range): 144 Dilatation: 10 Effacement (%): 100 Amniotic Membrane Status: Ruptured Presentation: Vertex/Position (OP Small baby) Station: +2
--- NOTE | 2019-07-11 00:09 | PN ---
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 Given 1 dose of Ampicillin. Delivered OP. 9 and 9. No epis., no laceration.
[2019-07-11] MEDS ORDERED: WITCH HAZEL 50% (TUCKS) 40 PAD/JAR PAD TP PRN ×2 (00:10→00:19)
[2019-07-11] MEDS ORDERED: BENZOCAINE 20% 57 GM BOTTLE TP PRN ×2 (00:10→00:19)
[2019-07-11] MEDS ORDERED: BISACODYL 10 MG SUPP.RECT RC PRN ×2 (00:10→00:19)
[2019-07-11] MEDS ORDERED: ACETAMINOPHEN 325 MG TABLET (FP) PO PRN (00:10)
[2019-07-11] MEDS ORDERED: BENZOCAINE 28 GM HEMORRHOIDAL OINTMENT TP PRN (00:10)
[2019-07-11] MEDS ORDERED: IBUPROFEN 600 MG TABLET (FP) PO PRN (00:10)
[2019-07-11] MEDS ORDERED: ALBUTEROL SO4 8 GM HFA INHALER IH PRN (00:14)
[2019-07-11] MEDS ORDERED: METHYLERGONOVINE MALEATE 0.2 MG/1 ML AMP IM PRN (00:19)
[2019-07-11] MEDS ORDERED: AMPICILLIN - 1 GM in SODIUM CHLORIDE 100 ML IVPB SCH (00:30)
[2019-07-11] MEDS ORDERED: OXYTOCIN 20 UNITS in 0.9% NS 20 UNIT/1,000 ML INFUS.BAG IV SCH (00:30)
[2019-07-11] MEDS ORDERED: IBUPROFEN 600 MG TABLET (FP) PO ONE ×2 (01:15→20:48)
[2019-07-11] MEDS ORDERED: ACETAMINOPHEN 325 MG TABLET (FP) ONE ×2 (01:15→20:48)
[2019-07-11] MEDS: ACETAMINOPHEN 325 MG TABLET (FP) PO PRN ×2 (01:20→21:00)
[2019-07-11] MEDS: IBUPROFEN 600 MG TABLET (FP) PO PRN ×2 (01:20→21:00)
[2019-07-11] MEDS ORDERED: OXYTOCIN 20 UNITS in 0.9% NS 20 UNIT/1,000 ML INFUS.BAG IV ONE (02:36)
--- NOTE | 2019-07-11 07:38 | PN ---
Post Progress Note Post Day: 1 Type of Delivery: Vital Signs: Vital Signs Temperature 98.7 F 07/11/19 06:00 Pulse Rate 62 07/11/19 06:00 Respiratory Rate 20 07/11/19 06:00 Blood Pressure 131/87 07/11/19 06:00 O2 Sat by Pulse Oximetry (%) 100 07/11/19 00:45 Breast Exam: Yes: Soft Uterus: Yes: Fundus Firm Abdomen/GI: Yes: Abdomen soft Lochia: Yes: Rubra Lochia, amount: Small Extremities: Yes: Calves non-tender Perineum: Yes: Intact Activity: Ambulating (Doing well. Happy.) - Labs Labs: CBC WBC 11.2 K/mm3 (4.0-10.0) H 07/10/19 21:30 RBC 3.41 M/mm3 (3.60-5.2) L 07/10/19 21:30 Hgb 10.8 GM/dL (10.7-15.3) 07/10/19 21:30 Hct 31.5 % (32.4-45.2) L D 07/10/19 21:30 MCV 92.4 fl (80-96) 07/10/19 21:30 MCH 31.6 pg (25.7-33.7) 07/10/19 21:30 MCHC 34.2 g/dl (32.0-36.0) 07/10/19 21:30 RDW 13.6 % (11.6-15.6) 07/10/19 21:30 Plt Count 211 K/MM3 (134-434) 07/10/19 21:30 MPV 9.0 fl (7.5-11.1) D 07/10/19 21:30 Absolute Neuts (auto) 8.2 K/mm3 (1.5-8.0) H 07/10/19 21:30 Neutrophils % 73.6 % (42.8-82.8) 07/10/19 21:30 Lymphocytes % 18.5 % (8-40) D 07/10/19 21:30 Monocytes % 6.2 % (3.8-10.2) 07/10/19 21:30 Eosinophils % 1.3 % (0-4.5) 07/10/19 21:30 Basophils % 0.4 % (0-2.0) 07/10/19 21:30 Nucleated RBC % 0 % (0-0) 07/10/19 21:30 Retic Count 2.27 % (0.5-1.5) H 07/10/19 21:30 Problem List - Problems (1) Normal course Code(s): Z39.2 - ENCOUNTER FOR ROUTINE FOLLOW-UP Assessment/Plan PPD # 1 Good recovery. No complaints. Breast feeding discussed, encouraged. Exam - WNL. Doing well. Anticipating discharge tomorrow.
--- NOTE | 2019-07-11 08:23 | PN ---
Post Progress Note - Subjective Subjective: Pain controlled. No BETTENCOURT, no N/V. No visual changes. Minimal ambulation. Post Day: 1 Type of Delivery: Vital Signs: Vital Signs Temperature 98.7 F 07/11/19 06:00 Pulse Rate 62 07/11/19 06:00 Respiratory Rate 20 07/11/19 06:00 Blood Pressure 131/87 07/11/19 06:00 O2 Sat by Pulse Oximetry (%) 100 07/11/19 00:45 Uterus: Yes: Fundus below umbilicus Abdomen/GI: Yes: Abdomen soft, Tolerating PO Lochia: Yes: Rubra Lochia, amount: Small Extremities: Yes: Calves non-tender Activity: Ambulating - Labs Labs: CBC WBC 11.2 K/mm3 (4.0-10.0) H 07/10/19 21:30 RBC 3.41 M/mm3 (3.60-5.2) L 07/10/19 21:30 Hgb 10.8 GM/dL (10.7-15.3) 07/10/19 21:30 Hct 31.5 % (32.4-45.2) L D 07/10/19 21:30 MCV 92.4 fl (80-96) 07/10/19 21:30 MCH 31.6 pg (25.7-33.7) 07/10/19 21:30 MCHC 34.2 g/dl (32.0-36.0) 07/10/19 21:30 RDW 13.6 % (11.6-15.6) 07/10/19 21:30 Plt Count 211 K/MM3 (134-434) 07/10/19 21:30 MPV 9.0 fl (7.5-11.1) D 07/10/19 21:30 Absolute Neuts (auto) 8.2 K/mm3 (1.5-8.0) H 07/10/19 21:30 Neutrophils % 73.6 % (42.8-82.8) 07/10/19 21:30 Lymphocytes % 18.5 % (8-40) D 07/10/19 21:30 Monocytes % 6.2 % (3.8-10.2) 07/10/19 21:30 Eosinophils % 1.3 % (0-4.5) 07/10/19 21:30 Basophils % 0.4 % (0-2.0) 07/10/19 21:30 Nucleated RBC % 0 % (0-0) 07/10/19 21:30 Retic Count 2.27 % (0.5-1.5) H 07/10/19 21:30 Assessment/Plan 24yo s/p c/b PEC Routine PP care PO pain control Labs reviewed Vitals stable Anticipate d/c to home PPD#2 with BP check in one week in the office. Nika Sprague
[2019-07-11 08:43] LABS: BASO % 0.2 % (0-2.0); EOS % 0.3 % (0-4.5); HEMATOCRIT 30.4 % (32.4-45.2); HEMOGLOBIN 10.2 GM/dL (10.7-15.3); LYMPH % 14.1 % (8-40); MCH 31.2 pg (25.7-33.7); MCHC 33.7 g/dl (32.0-36.0); MEAN CELL VOLUME 92.7 fl (80-96); MONO % 6.5 % (3.8-10.2); NEUT % 78.9 % (42.8-82.8); PLATELET COUNT 189 K/MM3 (134-434); RBC 3.28 M/mm3 (3.60-5.2); RDW 13.8 % (11.6-15.6); WHITE BLOOD COUNT 13.1 K/mm3 (4.0-10.0)
[2019-07-11] MEDS: PRENATAL VITAMINS W/ FOLIC ACID TABLET (FP) PO SCH (09:00)
[2019-07-11] MEDS ORDERED: DIPHTH,PERTUSS(ACELL),TET 0.5 ML DISP.SYRIN IM ONE (18:00)
--- NOTE | 2019-07-12 06:38 | DS ---
Physical Exam-FIELD CROP FARMING SUPERVISOR Vital Signs: Vital Signs Temperature 98.3 F 07/12/19 06:00 Pulse Rate 58 L 07/12/19 06:00 Respiratory Rate 20 07/12/19 06:00 Blood Pressure 139/71 07/12/19 06:00 O2 Sat by Pulse Oximetry (%) 100 07/11/19 00:45 Constitutional: Yes: Well Nourished, No Distress, Calm Eyes: Yes: WNL, Conjunctiva Clear, EOM Intact HENT: Yes: WNL, Atraumatic, Normocephalic Neck: Yes: WNL, Supple, Trachea Midline Cardiovascular: Yes: WNL, Regular Rate and Rhythm Respiratory: Yes: WNL, Regular, CTA Bilaterally Gastrointestinal: Yes: WNL ...Rectal Exam: Yes: WNL Renal/: Yes: WNL ....Post : Yes: Uterus firm, Uterus non-tender, Slight lochia rubra Breast(s): Yes: WNL Musculoskeletal: Yes: WNL Extremities: Yes: WNL Edema: No Integumentary: Yes: WNL Neurological: Yes: WNL, Alert, Oriented ...Motor Strength: WNL Psychiatric: Yes: WNL, Alert, Oriented Labs: CBC, BMP 07/11/19 08:30 07/10/19 21:30 Delivery - Delivery Vaginal Delivery: Spontaneous Type of Anesthesia: Local Episiotomy/Laceration: None (300 cc) EBL (cc): 300 Delivery, Single - Stages of Labor Date 1st Stage Initiatied: 07/10/19 Time 1st Stage Initiated: 19:00 Date 2nd Stage Initiated: 07/10/19 Time 2nd Stage Initiated: 23:40 Date of Delivery: 07/11/19 (Delivered OP.) Time of Delivery: 21:52 Time Placenta Delivered: 21:59 Placenta: Yes: Spontaneous - Condition of Manager Knowledge/Pinmaker Present: No Gender: Female Weight: 5 lb Position: OP Total Hours ROM (Hrs/Mins): 4hrs 59min - 1 Minute Total Score: 9 5 Minutes Total Score: 9 - [place] Feeding Plan Initial Plan: Elected not to breastfeed exclusively throughout hospitalization Discharge Summary Reason For Visit: LABOR Current Active Problems Normal course (Acute) Procedures: Principal: Hospital Course: no complication Condition: Stable - Instructions Diet, Activity, Other Instructions: Regular Diet Follow up in one week for a blood pressure check Referrals: Ana Guzman CNM [Certified Nurse Fiscal Specialist] - Chelsey Sprague MD [Staff Physician] - Disposition: HOME - Home Medications Comprehensive Discharge Medication List: Ambulatory Orders Albuterol Sulfate Inhaler - [Ventolin Hfa Inhaler -] 1 - 2 inh PO Q4H PRN Vitamins (Sjr) - 1 tab PO DAILY 07/10/19 Ibuprofen 600 mg PO Q6H PRN #30 tablet 07/11/19
[2019-07-12] MEDS ORDERED: ACETAMINOPHEN 325 MG TABLET (FP) ONE (08:11)
[2019-07-12] MEDS ORDERED: IBUPROFEN 600 MG TABLET (FP) PO ONE (08:11)
[2019-07-12] MEDS: IBUPROFEN 600 MG TABLET (FP) PO PRN (08:15)
[2019-07-12] MEDS: ACETAMINOPHEN 325 MG TABLET (FP) PO PRN (08:15)
[2019-07-12] MEDS: PRENATAL VITAMINS W/ FOLIC ACID TABLET (FP) PO SCH (09:21)
[2019-07-12 10:42] VITALS: BP 124/81; PULSE 63; TEMP 98.4
[2019-07-12] MEDS ORDERED: SENNOSIDES/DOCUSATE COMBO (SENNA PLUS) TABLET (UD) PO PRN (22:00)
[2019-07-15 09:12] LABS: POC NITRAZINE POS
== END 2019-07-12 12:30 | disposition home or self-care (01) | DRG 560 ==
LOC: JLDR 19:22
PROVIDERS: ADMIT Obstetrics & Gynecology; ATTEND Obstetrics & Gynecology
PROC: 10E0XZZ Delivery of Products of Conception, External Approach (ICD-10-PCS; principal; 2019-07-11)
DX: O42.913 Preterm premature rupture of membranes, unspecified as to length of time between rupture and onset of labor, third trimester (principal); Z3A.36 36 weeks gestation of pregnancy; Z37.0 Single live birth
CPT/HCPCS: 36415; 59409; 80048; 80307; 81003; 82977; 83010; 83986-QW; 84450; 84460; 84550; 85025; 85032; 85044; 85610; 85730; 86593; 86850; 86900; 86901; 90715

== ENCOUNTER 2020-04-18 17:58 | Emergency (ER) | payer OTHER ==
[2020-04-18] MEDS ORDERED: predniSONE 20 MG TABLET (UD) PO ONE (18:06)
[2020-04-18] MEDS ORDERED: ALBUTEROL SO4 2.5/IPRATROPIUM 0.5 INH SOL 3 ML VIAL.NEB. NEB SCH (18:15)
[2020-04-18 18:16] VITALS: BMI 16.7
[2020-04-18] MEDS ORDERED: ALBUTEROL SO4 2.5/IPRATROPIUM 0.5 INH SOL 3 ML VIAL.NEB. NEB ONE (18:16)
[2020-04-18] MEDS ORDERED: ALBUTEROL SO4 HFA INHALER IH ONE ×2 (18:24→18:26)
[2020-04-18] MEDS ORDERED: predniSONE 20 MG TABLET (UD) ONE (18:41)
[2020-04-18 20:11] VITALS: BP 110/67; PULSE 96; TEMP 97.8
== END 2020-04-18 20:12 | disposition home or self-care (01) ==
LOC: JER 17:58
PROC: 3E0F7GC Introduction of Other Therapeutic Substance into Respiratory Tract, Via Natural or Artificial Opening (ICD-10-PCS; principal; 2020-04-18)
DX: J45.901 Unspecified asthma with (acute) exacerbation (principal)
CPT/HCPCS: 71045-TC-FY; 84703; 99284-25